=== PATIENT | female | born 1970 | race Caucasian/White ===

== ENCOUNTER 2017-10-03 20:44 | Emergency (ER) | payer OTHER ==
[~2017-10-03] VITALS: Ht 160 cm; Wt 90.7 kg
[~2017-10-03 20:44] MED LIST: ACEBUTCAFT PO; ACET325 PO; ACET500; ALBU90OI INH; ALBU90OI6 INH; ALMOTRIPTAN; AMIT10 PO; AMLO5 PO; ARIP20 PO; AZIT250 PO; BCP S; BCP'S; BCPs; BENZ100A PO; BUSP15; CARI350; CEPH500 PO; CIPR250 PO; CIPR500; CIPR500 PO; CLIN300 PO; CLON1; CLON1 PO; CLON2 PO; CODACE30 PO; CODBUTACEC PO; CRUTCH4 USE; Colace100 MG PO; Cyclobenzaprine5 MG PO; DIPH50; DIPH50 PO; EPIN.3I IM; ESCI10; FOLI1 PO; FURO40 PO; Ferrous Sulfat325 MG PO; GABA300; HYDACE5 PO; HYDCHL12.5; HYDGUAL120 PO; HYDMOR4; HYDPAM25 PO; IBUP800; IBUP800 PO; LATUDA20 MG PO; LEVFLO500 PO; LISI5 PO; LOSA25 PO; MECL12.5 PO; MECL25 PO; META800 PO; METPRE4DP PO; MIRT30 PO; MORP15ER PO; MORP30ER PO; Macrobid 100 M100 MG PO; Micro-K10 MEQ PO; NAPR550 PO; NATAZIA 28 TAB1 EACH PO; NITR100CA PO; ONDA4ODT SL; OXYACE5T PO; OXYACE7.5T PO; OXYC5 PO; Omeprazole20 M1 PO; PARO20 PO; PAXIL40 MG PO; PHENA200 PO; POTCHL10ER; POTCHL10ER PO; POTCHL20ER PO; PREG75; PROACE100 PO; PROM25; PROM25 PO; PROM25S PR; PROM50S PR; Prednisone20 MG PO; Pyridium100 MG PO; QUET100; QUET100 PO; QUET200; QUET300 PO; RXPROM25 PO; RXTRAM50 PO; SULTRIDS PO; SULTRISS; TIZA4; TIZA4 PO; TRAM50; TRAM50 PO; TRAZ100 PO; VENL75; ZIPR20 PO; Zanaflex2 M1 PO; Zanaflex4 MG PO; Zofran Odt4 MG SL; [UNRECOGNIZED DRUG - OTHER]; [UNRECOGNIZED DRUG - REMARK]
[2017-10-03] MEDS ORDERED: ANORO ELLIPTA1 EACH INH (21:55)
[2017-10-03 22:12] LABS: Influenza A Negative (NEGATIVE); Influenza B Negative (NEGATIVE)
[2017-10-03 23:09] LABS: BASOPHILS PERCENT AUTO 1 % (0-2); EOSINOPHILS PERCENT AUTO 1 % (0-6); Hematocrit 34.6 % (33.0-51.0); Hemoglobin 11.1 g/dL (11.5-16.0); IMMATURE GRAN ABSOLUTE AUTO 0.09 K/mm3 (0.00-0.10); IMMATURE GRAN PERCENT AUTO 1 % (0-1); LYMPHOCYTES ABSOLUTE AUTO 3.45 K/mm3 (0.84-5.20); LYMPHOCYTES PERCENT AUTO 21 % (21-46); MONOCYTES ABSOLUTE AUTO 1.18 K/mm3 (0.16-1.47); MONOCYTES PERCENT AUTO 7 % (4-13); Mean Corpuscular HGB 23.5 pg (26.0-34.0); Mean Corpuscular HGB Conc 32.1 g/dL (31.5-36.5); Mean Corpuscular Volume 73 fL (80-100); NEUTROPHILS ABSOLUTE AUTO 11.78 K/mm3 (1.96-9.15); NEUTROPHILS PERCENT AUTO 70 % (41-73); Platelet Count 412 K/mm3 (150-400); RDW Coefficient Variation 17.8 % (11.7-14.2); RDW Standard Deviation 47.2 fL (35.1-46.3); Red Blood Cell Count 4.72 M/mm3 (3.80-5.20)
[2017-10-03 23:28] LABS: Alanine Aminotransfer (ALT/SGP 12 U/L (12-78); Albumin, Blood 3.1 g/dL (3.4-5.0); Albumin/Globulin Ratio 0.7 (0.8-1.8); Alk Phos 88 U/L (50-136); Anion Gap 12 mmol/L (6-16); Aspartate Aminotrans (AST/SGOT 8 U/L (12-37); Bilirubin, Total 0.5 mg/dL (0.1-1.0); Blood Urea Nitrogen 10 mg/dL (8-24); Bun/Creatinine Ratio 11.4 (12.0-20.0); CO2, Blood 22 mmol/L (21-32); Calcium, Blood 8.3 mg/dL (8.5-10.1); Chloride, Blood 103 mmol/L (98-108); Creatinine, Blood 0.88 mg/dL (0.40-1.00); Globulin, Blood 4.2 g/dL (2.2-4.0); Glomerular Filtration Rate >60 (60-); Glucose, Blood 87 mg/dL (70-99); Potassium, Blood 3.4 mmol/L (3.5-5.5); Sodium, Blood 137 mmol/L (136-145); Total Protein, Blood 7.3 g/dL (6.4-8.2)
[2017-10-04 00:26] LABS: Source, Urine Clean Catch
[2017-10-04] MEDS ORDERED: Cleocin HCl150 MG PO (00:26)
[2017-10-04 00:30] LABS: Bilirubin, Urine Neg (Neg); Blood, Urine 3+ (Neg); Glucose Qualitative, Urine Neg (Neg); Ketones, Urine 3+ (Neg); Leukocyte Esterase, Urine 2+ (Neg); Nitrite, Urine Neg (Neg); Protein, Urine Neg (Neg); Urobilinogen, Urine NORM (Normal); pH, Urine 6.5 (5.0-8.0)
[2017-10-04 00:31] LABS: Appearance, Urine Hazy (Clear); Color, Urine Yellow (P-Yellow)
[2017-10-04 00:50] LABS: Amorphous Light (0-Heavy); Bacteria Few /hpf; Mucus Light (0-Heavy); Red Blood Cells, Urine Rare /hpf (0-2); Squamous Epithelial Cells Mod /hpf (Few)
== END 2017-10-04 01:28 | disposition home or self-care (01) ==
LOC: ER 20:44
PROVIDERS: Emergency Medicine
DX: J02.0 Streptococcal pharyngitis (principal); G43.909 Migraine, unspecified, not intractable, without status migrainosus; Z88.0 Allergy status to penicillin; F31.9 Bipolar disorder, unspecified; Z91.011 Allergy to milk products; Z91.018 Allergy to other foods; Z91.030 Bee allergy status; Z88.2 Allergy status to sulfonamides; Z88.1 Allergy status to other antibiotic agents; Z88.8 Allergy status to other drugs, medicaments and biological substances; Z79.899 Other long term (current) drug therapy; Z98.890 Other specified postprocedural states; Z90.49 Acquired absence of other specified parts of digestive tract; Z98.51 Tubal ligation status
CPT/HCPCS: 36415; 80053; 81001; 85025; 87086; 87430; 87804; 96361; 96374; 96375; 99283; J1885; J2405; J7030

== ENCOUNTER 2018-04-24 22:16 | Emergency (ER) | payer OTHER ==
[~2018-04-24] VITALS: Ht 160 cm; Wt 81.7 kg
[~2018-04-24 22:16] MED LIST changes: +ANORO ELLIPTA1 EACH INH; +Cleocin HCl150 MG PO
[2018-04-24] MEDS ORDERED: BUSP5 PO (23:36)
[2018-04-24] MEDS ORDERED: CITA20 PO (23:36)
[2018-04-24] MEDS ORDERED: VITAMIN D5000 UNIT PO (23:37)
[2018-04-25 00:25] LABS: BASOPHILS ABSOLUTE AUTO 0.11 K/mm3 (0.00-0.23); BASOPHILS PERCENT AUTO 1 % (0-2); EOSINOPHILS ABSOLUTE AUTO 0.16 K/mm3 (0.00-0.68); EOSINOPHILS PERCENT AUTO 1 % (0-6); Hematocrit 36.7 % (33.0-51.0); Hemoglobin 11.5 g/dL (11.5-16.0); IMMATURE GRAN ABSOLUTE AUTO 0.02 K/mm3 (0.00-0.10); IMMATURE GRAN PERCENT AUTO 0 % (0-1); LYMPHOCYTES ABSOLUTE AUTO 4.53 K/mm3 (0.84-5.20); LYMPHOCYTES PERCENT AUTO 38 % (21-46); MONOCYTES ABSOLUTE AUTO 0.84 K/mm3 (0.16-1.47); MONOCYTES PERCENT AUTO 7 % (4-13); Mean Corpuscular HGB 25.1 pg (26.0-34.0); Mean Corpuscular HGB Conc 31.3 g/dL (31.5-36.5); Mean Corpuscular Volume 80 fL (80-100); Mean Platelet Volume 9.2 fL (9.1-12.4); NEUTROPHILS ABSOLUTE AUTO 6.38 K/mm3 (1.96-9.15); NEUTROPHILS PERCENT AUTO 53 % (41-73); Platelet Count 473 K/mm3 (150-400); RDW Coefficient Variation 17.3 % (11.7-14.2); RDW Standard Deviation 50.1 fL (35.1-46.3); Red Blood Cell Count 4.59 M/mm3 (3.80-5.20); White Blood Cell Count 12.04 K/mm3 (4.00-11.30)
== END 2018-04-25 01:09 | disposition home or self-care (01) ==
LOC: ER 22:16
PROVIDERS: Emergency Medicine
DX: N92.1 Excessive and frequent menstruation with irregular cycle (principal); G43.909 Migraine, unspecified, not intractable, without status migrainosus; F31.9 Bipolar disorder, unspecified; Z87.891 Personal history of nicotine dependence; Z88.0 Allergy status to penicillin; Z88.2 Allergy status to sulfonamides; Z88.8 Allergy status to other drugs, medicaments and biological substances; Z88.1 Allergy status to other antibiotic agents; Z91.030 Bee allergy status; Z91.011 Allergy to milk products; Z91.018 Allergy to other foods; Z79.899 Other long term (current) drug therapy
CPT/HCPCS: 36415; 84703; 85025; 99283

== ENCOUNTER 2018-07-06 15:57 | Emergency (ER) | payer OTHER ==
[~2018-07-06] VITALS: Ht 165.1 cm; Wt 90.7 kg
[~2018-07-06 15:57] MED LIST changes: +BUSP5 PO; +CITA20 PO; +VITAMIN D5000 UNIT PO
[2018-07-06 16:37] LABS: BASOPHILS ABSOLUTE AUTO 0.09 K/mm3 (0.00-0.23); BASOPHILS PERCENT AUTO 1 % (0-2); EOSINOPHILS ABSOLUTE AUTO 0.18 K/mm3 (0.00-0.68); EOSINOPHILS PERCENT AUTO 1 % (0-6); Hematocrit 34.2 % (33.0-51.0); Hemoglobin 10.4 g/dL (11.5-16.0); IMMATURE GRAN ABSOLUTE AUTO 0.13 K/mm3 (0.00-0.10); IMMATURE GRAN PERCENT AUTO 1 % (0-1); LYMPHOCYTES ABSOLUTE AUTO 4.39 K/mm3 (0.84-5.20); LYMPHOCYTES PERCENT AUTO 31 % (21-46); MONOCYTES ABSOLUTE AUTO 0.83 K/mm3 (0.16-1.47); MONOCYTES PERCENT AUTO 6 % (4-13); Mean Corpuscular HGB 23.5 pg (26.0-34.0); Mean Corpuscular HGB Conc 30.4 g/dL (31.5-36.5); Mean Corpuscular Volume 77 fL (80-100); Mean Platelet Volume 8.5 fL (9.1-12.4); NEUTROPHILS PERCENT AUTO 61 % (41-73); Platelet Count 628 K/mm3 (150-400); RDW Standard Deviation 44.4 fL (35.1-46.3); Red Blood Cell Count 4.42 M/mm3 (3.80-5.20); White Blood Cell Count 14.22 K/mm3 (4.00-11.30)
[2018-07-06 16:50] LABS: International Normalized Ratio 0.97
[2018-07-06 16:54] LABS: Albumin, Blood 3.4 g/dL (3.4-5.0); Albumin/Globulin Ratio 0.8 (0.8-1.8); Bilirubin, Total 0.2 mg/dL (0.1-1.0); Bun/Creatinine Ratio 14.3 (12.0-20.0); Calcium, Blood 8.7 mg/dL (8.5-10.1); Creatinine, Blood 1.05 mg/dL (0.40-1.00); Globulin, Blood 4.2 g/dL (2.2-4.0); Potassium, Blood 4.2 mmol/L (3.5-5.5); Total Protein, Blood 7.6 g/dL (6.4-8.2)
== END 2018-07-06 20:58 | disposition short-term general hospital (02) ==
LOC: ER 15:57
PROVIDERS: Emergency Medicine
DX: S32.422A Displaced fracture of posterior wall of left acetabulum, initial encounter for closed fracture (principal); S22.43XA Multiple fractures of ribs, bilateral, initial encounter for closed fracture; S32.474A Nondisplaced fracture of medial wall of right acetabulum, initial encounter for closed fracture; S40.812A Abrasion of left upper arm, initial encounter; S40.811A Abrasion of right upper arm, initial encounter; N18.9 Chronic kidney disease, unspecified; F31.9 Bipolar disorder, unspecified; Z91.030 Bee allergy status; Z88.0 Allergy status to penicillin; Z91.011 Allergy to milk products; Z91.018 Allergy to other foods; Z88.6 Allergy status to analgesic agent; Z88.2 Allergy status to sulfonamides; Z88.1 Allergy status to other antibiotic agents; Z88.8 Allergy status to other drugs, medicaments and biological substances; Z79.899 Other long term (current) drug therapy; Z87.891 Personal history of nicotine dependence; V47.6XXA Car passenger injured in collision with fixed or stationary object in traffic accident, initial encounter
CPT/HCPCS: 27222; 36415; 51702; 70450; 71260; 72125; 73501; 73502; 73560-RT; 74177; 80053; 83690; 85025; 85610; 85730; 86850; 86900; 86901; 96374; 96375; 96376; 99152; 99285-25; J1170; J2405; J3010; J7030; Q9967

== ENCOUNTER 2018-07-19 07:32 | Emergency (ER) | payer OTHER ==
[~2018-07-19] VITALS: Ht 160 cm; Wt 81.7 kg
[2018-09-10] MEDS ORDERED: POTCHL10ER PO (12:43)
[2018-09-10] MEDS ORDERED: FURO40 PO (12:43)
[2018-09-10] MEDS ORDERED: EPIPEN 2-P0.3 MG/0.3 IM (12:43)
[2018-09-10] MEDS ORDERED: ALBU90OI INH (12:44)
[2018-09-10] MEDS ORDERED: Omeprazole20 M1 PO (12:44)
[2018-09-10] MEDS ORDERED: LOSA25 PO (12:44)
[2018-09-10] MEDS ORDERED: Celexa40 MG PO (12:45)
[2018-09-10] MEDS ORDERED: ANORO ELLIPTA1 EACH INH (12:45)
[2018-09-10] MEDS ORDERED: CYCL10 PO (12:45)
== END 2018-07-19 10:30 | disposition home or self-care (01) ==
LOC: ER 07:32
DX: S93.401A Sprain of unspecified ligament of right ankle, initial encounter (principal); S32.401D Unspecified fracture of right acetabulum, subsequent encounter for fracture with routine healing; X58.XXXA Exposure to other specified factors, initial encounter; Z91.030 Bee allergy status; Z88.0 Allergy status to penicillin; Z91.011 Allergy to milk products; Z88.8 Allergy status to other drugs, medicaments and biological substances; Z88.2 Allergy status to sulfonamides; Z88.1 Allergy status to other antibiotic agents; Z79.899 Other long term (current) drug therapy; G43.909 Migraine, unspecified, not intractable, without status migrainosus; Z31.9 Encounter for procreative management, unspecified; I12.9 Hypertensive chronic kidney disease with stage 1 through stage 4 chronic kidney disease, or unspecified chronic kidney disease; N18.9 Chronic kidney disease, unspecified; Z87.891 Personal history of nicotine dependence
CPT/HCPCS: 73502; 73610; 96374; 96375; 99284-25; J2550; J3010

== ENCOUNTER → 2018-07-25 | Outpatient (CLI) | payer OTHER ==
[~2018-07-25] MED LIST changes: +CYCL10 PO; +Celexa40 MG PO; +EPIPEN 2-P0.3 MG/0.3 IM
== END | disposition home or self-care (01) ==
LOC: LAB SHORT 17:11 → LAB 17:11
DX: T24.23 Burn of second degree of lower leg (principal)
CPT/HCPCS: 87070; 87205

== ENCOUNTER 2018-09-11 09:59 | Day surgery (SDC) | payer OTHER ==
[~2018-09-11] VITALS: Ht 157.5 cm; Wt 82.9 kg
--- NOTE | 2018-09-11 11:35 | NUR ---
09/11/18 1135 Hernandez Louis SEVERAL SORE ON DORSAL ASPECT OF RIGHT HAND AND FOREARM. ALL HAVE WELL HEALED SCABS ON THEM.
--- NOTE | 2018-09-11 12:55 | NUR ---
09/11/18 Carmen East VERBALIZED UNDERSTNADING OF INSTRUCTION, ARUN ARM ELEVATED IN SLING, TEACHING ON PAIN MEDS AND FOLLOW UP. WALKED TO CAR WITH STANDBY ASSIST,
== END 2018-09-11 12:40 | disposition home or self-care (01) ==
LOC: ORSCSDS 09:59
PROVIDERS: Orthopaedic Surgery
PROC: 01N50ZZ Release Median Nerve, Open Approach (ICD-10-PCS; principal; 2018-09-11 11:15)
DX: G56.01 Carpal tunnel syndrome, right upper limb (principal); I10 Essential (primary) hypertension; J45.909 Unspecified asthma, uncomplicated; F41.8 Other specified anxiety disorders; F42.9 Obsessive-compulsive disorder, unspecified; E66.9 Obesity, unspecified; Z68.33 Body mass index [BMI] 33.0-33.9, adult; Z79.899 Other long term (current) drug therapy
CPT/HCPCS: J0690; J2250; J2405; J3010; J7120

== ENCOUNTER → 2018-12-16 | Outpatient (CLI) | payer OTHER | LOC: LAB SHORT 08:46 → PLD 08:46 | DX: N94.6 Dysmenorrhea, unspecified (principal) | CPT/HCPCS: 88305 ==

== ENCOUNTER 2019-04-28 15:22 | Emergency (ER) | payer OTHER ==
[~2019-04-28] VITALS: Ht 157.5 cm; Wt 72.6 kg
[2019-04-28] MEDS ORDERED: Zithromax250 MG PO (15:55)
== END 2019-04-28 15:58 | disposition home or self-care (01) ==
LOC: ER 15:22
DX: J18.9 Pneumonia, unspecified organism (principal); Z88.0 Allergy status to penicillin; Z91.030 Bee allergy status; Z91.011 Allergy to milk products; Z91.018 Allergy to other foods; Z88.2 Allergy status to sulfonamides; Z88.1 Allergy status to other antibiotic agents; Z79.899 Other long term (current) drug therapy; G43.909 Migraine, unspecified, not intractable, without status migrainosus; I12.9 Hypertensive chronic kidney disease with stage 1 through stage 4 chronic kidney disease, or unspecified chronic kidney disease; N18.9 Chronic kidney disease, unspecified; Z87.891 Personal history of nicotine dependence
CPT/HCPCS: 71046; 99283-25

== ENCOUNTER 2019-05-08 15:56 | Emergency (ER) | payer OTHER ==
[~2019-05-08] VITALS: Ht 157.5 cm; Wt 71.7 kg
[~2019-05-08 15:56] MED LIST changes: +Zithromax250 MG PO
[2019-05-08 16:23] LABS: BASOPHILS ABSOLUTE AUTO 0.14 K/mm3 (0.00-0.23); BASOPHILS PERCENT AUTO 1 % (0-2); EOSINOPHILS ABSOLUTE AUTO 0.07 K/mm3 (0.00-0.68); EOSINOPHILS PERCENT AUTO 1 % (0-6); IMMATURE GRAN ABSOLUTE AUTO 0.03 K/mm3 (0.00-0.10); IMMATURE GRAN PERCENT AUTO 0 % (0-1); LYMPHOCYTES PERCENT AUTO 33 % (21-46); MONOCYTES ABSOLUTE AUTO 0.89 K/mm3 (0.16-1.47); MONOCYTES PERCENT AUTO 8 % (4-13); Mean Corpuscular HGB 25.4 pg (26.0-34.0); Mean Corpuscular HGB Conc 30.2 g/dL (31.5-36.5); Mean Corpuscular Volume 84 fL (80-100); Mean Platelet Volume 9.3 fL (9.1-12.4); NEUTROPHILS ABSOLUTE AUTO 6.14 K/mm3 (1.96-9.15); NEUTROPHILS PERCENT AUTO 57 % (41-73); Platelet Count 580 K/mm3 (150-400); RDW Coefficient Variation 14.9 % (11.7-14.2); RDW Standard Deviation 46.1 fL (35.1-46.3); Red Blood Cell Count 5.11 M/mm3 (3.80-5.20); White Blood Cell Count 10.77 K/mm3 (4.00-11.30)
[2019-05-08 16:56] LABS: International Normalized Ratio 1.05; Prothrombin Time Results 11.1 Sec (9.7-11.5)
[2019-05-08 17:55] LABS: Alanine Aminotransfer (ALT/SGP 29 U/L (12-78); Albumin, Blood 3.2 g/dL (3.4-5.0); Albumin/Globulin Ratio 0.8 (0.8-1.8); Alk Phos 103 U/L (50-136); Anion Gap 10 mmol/L (6-16); Aspartate Aminotrans (AST/SGOT 25 U/L (12-37); Bilirubin, Total 0.6 mg/dL (0.1-1.0); Blood Urea Nitrogen 15 mg/dL (8-24); Bun/Creatinine Ratio 15.6 (12.0-20.0); CO2, Blood 18 mmol/L (21-32); Calcium, Blood 8.5 mg/dL (8.5-10.1); Chloride, Blood 104 mmol/L (98-108); Creatinine, Blood 0.96 mg/dL (0.40-1.00); Globulin, Blood 4.1 g/dL (2.2-4.0); Glomerular Filtration Rate >60 (60-); Glucose, Blood 110 mg/dL (70-99); Potassium, Blood 4.4 mmol/L (3.5-5.5); Sodium, Blood 132 mmol/L (136-145); Total Protein, Blood 7.3 g/dL (6.4-8.2)
[2019-05-08 18:29] LABS: Source, Urine Catheter
[2019-05-08 18:34] LABS: Appearance, Urine Clear (Clear); Bilirubin, Urine Neg (Neg); Blood, Urine 1+ (Neg); Color, Urine Yellow (P-Yellow); Glucose Qualitative, Urine Neg (Neg); Ketones, Urine 1+ (Neg); Leukocyte Esterase, Urine Neg (Neg); Nitrite, Urine Neg (Neg); Protein, Urine 2+ (Neg); Specific Gravity, Urine 1.025 (1.003-1.022); Urobilinogen, Urine NORM (Normal)
[2019-05-08 18:41] LABS: Red Blood Cells, Urine 0-2 /hpf (0-2); White Blood Cells, Urine 0-2 /hpf (0-5)
[2019-05-08 18:42] LABS: Bacteria Few /hpf; Hyaline Casts 0-2 /lpf (0-2); Squamous Epithelial Cells Few /hpf (Few)
[2019-05-08 19:15] LABS: U Amphetamine Screen DETECTED; U Barbituate Screen Not Detected; U Benzodiazapine Screen Not Detected; U Buprenorphine Screen Not Detected; U Cannabinoids Screen DETECTED; U Cocaine Screen Not Detected; U Methadone Screen Not Detected; U Methamphetamine Screen DETECTED; U Opiates Screen Not Detected; U Oxycodone Screen Not Detected; U Phencyclidine Screen Not Detected; U Propoxyphene Screen Not Detected
[2019-05-08] MEDS ORDERED: Mucinex600 MG PO (19:38)
== END 2019-05-08 20:16 | disposition home or self-care (01) ==
LOC: ER 15:56
PROVIDERS: Emergency Medicine; Physician Assistant
DX: I47.1 Supraventricular tachycardia (principal); F41.9 Anxiety disorder, unspecified; E86.0 Dehydration; F15.10 Other stimulant abuse, uncomplicated; J06.9 Acute upper respiratory infection, unspecified; G89.4 Chronic pain syndrome; I12.9 Hypertensive chronic kidney disease with stage 1 through stage 4 chronic kidney disease, or unspecified chronic kidney disease; N18.9 Chronic kidney disease, unspecified; F31.9 Bipolar disorder, unspecified; Z86.73 Personal history of transient ischemic attack (TIA), and cerebral infarction without residual deficits; Z87.891 Personal history of nicotine dependence; Z91.030 Bee allergy status; Z88.0 Allergy status to penicillin; Z91.011 Allergy to milk products; Z91.018 Allergy to other foods; Z88.8 Allergy status to other drugs, medicaments and biological substances; Z88.2 Allergy status to sulfonamides; Z88.1 Allergy status to other antibiotic agents; Z79.899 Other long term (current) drug therapy
CPT/HCPCS: 36415; 71046; 80053; 81001; 83735; 84484; 85025; 85610; 85730; 87086; 93005; 93010; 96361; 96365; 96374; 96375; 96376; 99285-25; J0153; J2060; J2405; J3475; J7030; P9612

== ENCOUNTER 2019-05-10 00:15 | Inpatient (IN) | payer OTHER ==
[~2019-05-10] VITALS: Ht 154.9 cm; Wt 73.0 kg
[~2019-05-10 00:15] MED LIST changes: +Mucinex600 MG PO
[2019-05-10 01:10] LABS: Alanine Aminotransfer (ALT/SGP 40 U/L (12-78); Albumin/Globulin Ratio 0.8 (0.8-1.8); Alk Phos 106 U/L (50-136); Anion Gap 10 mmol/L (6-16); Aspartate Aminotrans (AST/SGOT 49 U/L (12-37); Bilirubin, Total 0.7 mg/dL (0.1-1.0); Blood Urea Nitrogen 12 mg/dL (8-24); Bun/Creatinine Ratio 15.1 (12.0-20.0); CO2, Blood 18 mmol/L (21-32); Calcium, Blood 7.7 mg/dL (8.5-10.1); Chloride, Blood 108 mmol/L (98-108); Creatinine, Blood 0.79 mg/dL (0.40-1.00); Globulin, Blood 3.6 g/dL (2.2-4.0); Glomerular Filtration Rate >60 (60-); Glucose, Blood 108 mg/dL (70-99); Potassium, Blood 4.1 mmol/L (3.5-5.5); Sodium, Blood 136 mmol/L (136-145); Total Protein, Blood 6.6 g/dL (6.4-8.2); Troponin I <0.015 ng/mL (0.000-0.040)
[2019-05-10 01:25] LABS: BASOPHILS ABSOLUTE AUTO 0.14 K/mm3 (0.00-0.23); BASOPHILS PERCENT AUTO 1 % (0-2); EOSINOPHILS ABSOLUTE AUTO 0.09 K/mm3 (0.00-0.68); EOSINOPHILS PERCENT AUTO 1 % (0-6); Hematocrit 41.9 % (33.0-51.0); IMMATURE GRAN ABSOLUTE AUTO 0.06 K/mm3 (0.00-0.10); IMMATURE GRAN PERCENT AUTO 0 % (0-1); LYMPHOCYTES PERCENT AUTO 26 % (21-46); MONOCYTES ABSOLUTE AUTO 1.31 K/mm3 (0.16-1.47); MONOCYTES PERCENT AUTO 10 % (4-13); Mean Corpuscular HGB 25.4 pg (26.0-34.0); Mean Corpuscular Volume 82 fL (80-100); NEUTROPHILS ABSOLUTE AUTO 8.57 K/mm3 (1.96-9.15); NEUTROPHILS PERCENT AUTO 63 % (41-73); RDW Standard Deviation 45.1 fL (35.1-46.3); Red Blood Cell Count 5.11 M/mm3 (3.80-5.20); White Blood Cell Count 13.67 K/mm3 (4.00-11.30)
[2019-05-10 01:28] LABS: Mean Platelet Volume 9.5 fL (9.1-12.4); Platelet Count 394 K/mm3 (150-400)
[2019-05-10 03:06] LABS: PCO2 Arterial 45.7 mmHg (35-45); PO2 Arterial 70.9 mmHg (80-100)
--- NOTE | 2019-05-10 05:30 | NUR ---
SVT EPISODE: PT TO ROOM ICU 6 AT 0450. PT WENT INTO SVT WHILE ACCESSING OTHER IV SITE. ACLS INITIATED. HOSPITALIST NOTIFIED. ADENOSINE 6mg RAPID IV PUSH GIVEN-PT CONVERTED TO SIT HR 130'S. HOSPITALIST NOTIFIED AMIODARONE BOLUS AND gtt ORDERED STAT. PHARMACIST NOTIFIED.
--- NOTE | 2019-05-10 06:20 | NUR ---
CENTRAL LINE IN R IJ. XRAY DONE. DR. WEIR AT BEDSIDE READ XRAY. LINE GOOD TO USE.
--- NOTE | 2019-05-10 06:43 | NUR ---
PT INTO SVT HR 219 WITH PULSE AT APPRX 0633: CODE CALLED. ADENOSINE GIVEN 6mg THEN 12mg, PT CONVERTED TO SINUS TACH 101. DR. PIERCE AND RT TO BEDSIDE. PT HYPOTENSIVE AT THAT TIME BP 60'S/40'S. LEVOPHED ORDERED. DR. VALENCIA TO BEDSIDE CONFIRMED TO ORDER AMIODARONE GTT. LABS CBC, CHEM , AND MG ORDERED AND DRAWN.
[2019-05-10 06:51] LABS: BASOPHILS ABSOLUTE AUTO 0.08 K/mm3 (0.00-0.23); BASOPHILS PERCENT AUTO 1 % (0-2); EOSINOPHILS PERCENT AUTO 0 % (0-6); Hematocrit 39.7 % (33.0-51.0); Hemoglobin 12.4 g/dL (11.5-16.0); IMMATURE GRAN ABSOLUTE AUTO 0.09 K/mm3 (0.00-0.10); IMMATURE GRAN PERCENT AUTO 1 % (0-1); LYMPHOCYTES ABSOLUTE AUTO 0.93 K/mm3 (0.84-5.20); LYMPHOCYTES PERCENT AUTO 6 % (21-46); MONOCYTES ABSOLUTE AUTO 1.02 K/mm3 (0.16-1.47); MONOCYTES PERCENT AUTO 7 % (4-13); Mean Corpuscular HGB 25.3 pg (26.0-34.0); Mean Corpuscular HGB Conc 31.2 g/dL (31.5-36.5); Mean Corpuscular Volume 81 fL (80-100); Mean Platelet Volume 9.2 fL (9.1-12.4); NEUTROPHILS PERCENT AUTO 86 % (41-73); Platelet Count 448 K/mm3 (150-400); RDW Coefficient Variation 15.3 % (11.7-14.2); RDW Standard Deviation 44.5 fL (35.1-46.3); Red Blood Cell Count 4.91 M/mm3 (3.80-5.20); White Blood Cell Count 15.52 K/mm3 (4.00-11.30)
[2019-05-10 07:07] LABS: Anion Gap 9 mmol/L (6-16); Blood Urea Nitrogen 14 mg/dL (8-24); Bun/Creatinine Ratio 14.4 (12.0-20.0); CO2, Blood 25 mmol/L (21-32); Calcium, Blood 7.4 mg/dL (8.5-10.1); Chloride, Blood 103 mmol/L (98-108); Creatinine, Blood 0.97 mg/dL (0.40-1.00); Glomerular Filtration Rate >60 (60-); Glucose, Blood 150 mg/dL (70-99); Magnesium, Blood 1.7 mg/dL (1.6-2.4); Potassium, Blood 3.2 mmol/L (3.5-5.5); Sodium, Blood 137 mmol/L (136-145)
[2019-05-10 08:00] LABS: Source, Urine Catheter
[2019-05-10 08:05] LABS: Bilirubin, Urine Neg (Neg); Blood, Urine 1+ (Neg); Glucose Qualitative, Urine Neg (Neg); Ketones, Urine Neg (Neg); Leukocyte Esterase, Urine Neg (Neg); Nitrite, Urine Neg (Neg); Protein, Urine 1+ (Neg); Urobilinogen, Urine NORM (Normal)
[2019-05-10 08:13] LABS: Appearance, Urine Clear (Clear); Color, Urine Yellow (P-Yellow)
[2019-05-10 08:16] LABS: Bacteria Rare /hpf; Red Blood Cells, Urine 0-2 /hpf (0-2); Squamous Epithelial Cells Rare /hpf (Few); White Blood Cells, Urine 0-2 /hpf (0-5)
[2019-05-10 08:17] LABS: U Amphetamine Screen Not Detected; U Barbituate Screen Not Detected; U Benzodiazapine Screen DETECTED; U Buprenorphine Screen Not Detected; U Cannabinoids Screen Not Detected; U Cocaine Screen Not Detected; U Methadone Screen Not Detected; U Methamphetamine Screen DETECTED; U Opiates Screen Not Detected; U Oxycodone Screen Not Detected; U Phencyclidine Screen Not Detected; U Propoxyphene Screen Not Detected
--- NOTE | 2019-05-10 08:30 | NUR ---
DR MCCURDY (ARTURO): PROVIDER AT BEDSIDE. HE HAS SPOKEN W/ FAMILY & PROVIDED AN UPDATE. UPDATED PROVIDER ON PT's CONDITION SINCE ARRIVAL TO UNIT. NEW ORDERS PLACED. WILL CONTINUE TO MONITOR & UPDATE NEEDED.
--- NOTE | 2019-05-10 08:40 | NUR ---
ASSUMED CARE: REPORT RECEIVED FROM SAMANTHA Beth RN. ASSUMED CARE OF THIS PT AT APPROX 0700. ON ASSESSMENT, THE PT REMAINS SEDATED & INTUBATED. SHE APPEARS COMFORTABLE AT THIS TIME. PROPOFOL TITRATION FOR SEDATION. LS ARE COARSE T/O, VENT SETTINGS: AC 18, TV 400, PEEP 5 & FIO2 50%. O2 SATS > 92% ON AVG. MONITOR SHOWS SR W/ HR 90s. NO SVT NOTED SINCE ASSUMING CARE. DR BIGGS CONSULTED THIS AM FOR RECURRENT SYMPTOMATIC SVT. BP STABLE, LEVOPHED TITRATION DOCUMENTED IN FLOWSHEET. OGT TO LIS, TEMP GALARZA PATENT/ DRAINING. DIURESIS PER EMAR. SKIN OVERALL CDI. MULTIPLE SPECIMENS HAVE BEEN COLLECTED PER ORDERS & SENT TO LAB. WILL CONTINUE TO MONITOR & UPDATE NEEDED.
--- NOTE | 2019-05-10 09:40 | NUR ---
DR BIGGS: PROVIDER AT BEDSIDE TO SEE PT. HE WOULD LIKE AMIO DRIP TO CONTINUE AT THIS TIME, WILL ADDRESS POSSIBILITY OF PO AMIO TOMORROW. ECHO HAS BEEN COMPLETED, PROVIDER STS PT HAS AN EF OF 25%. TITRATE LEVOPHED TO MAINTAIN MAP > 65. WILL CONTINUE TO MONITOR & UPDATE NEEDED.
[2019-05-10 11:02] LABS: Influenza A Negative (NEGATIVE); Influenza B Negative (NEGATIVE)
--- NOTE | 2019-05-10 11:33 | NUR ---
DR JOE: PROVIDER HAS BEEN AT BEDSIDE THIS AM. NO CHANGES, CONTINUE MANAGAMENT PER LEAD TECHNICIAN & CARDIO SERVICES.
--- NOTE | 2019-05-10 14:55 | NUR ---
ECHOCARDIOGRAM COMPLETE
[2019-05-10 15:18] LABS: Alanine Aminotransfer (ALT/SGP 46 U/L (12-78); Albumin, Blood 2.9 g/dL (3.4-5.0); Albumin/Globulin Ratio 0.7 (0.8-1.8); Alk Phos 121 U/L (50-136); Anion Gap 9 mmol/L (6-16); Aspartate Aminotrans (AST/SGOT 50 U/L (12-37); Bilirubin, Total 0.6 mg/dL (0.1-1.0); Blood Urea Nitrogen 13 mg/dL (8-24); Bun/Creatinine Ratio 12.9 (12.0-20.0); CO2, Blood 23 mmol/L (21-32); Calcium, Blood 7.5 mg/dL (8.5-10.1); Chloride, Blood 105 mmol/L (98-108); Creatinine, Blood 1.01 mg/dL (0.40-1.00); Glomerular Filtration Rate >60 (60-); Glucose, Blood 111 mg/dL (70-99); Potassium, Blood 4.9 mmol/L (3.5-5.5); Sodium, Blood 137 mmol/L (136-145); Total Protein, Blood 6.9 g/dL (6.4-8.2)
[2019-05-10 15:20] LABS: Hematocrit 41.8 % (33.0-51.0); Hemoglobin 12.9 g/dL (11.5-16.0); Mean Corpuscular HGB 25.2 pg (26.0-34.0); Mean Corpuscular HGB Conc 30.9 g/dL (31.5-36.5); Mean Corpuscular Volume 82 fL (80-100); Mean Platelet Volume 9.3 fL (9.1-12.4); Platelet Count 396 K/mm3 (150-400); RDW Coefficient Variation 15.2 % (11.7-14.2); RDW Standard Deviation 45.1 fL (35.1-46.3); Red Blood Cell Count 5.11 M/mm3 (3.80-5.20); White Blood Cell Count 15.78 K/mm3 (4.00-11.30)
[2019-05-10 15:43] LABS: Troponin I 0.078 ng/mL (0.000-0.040)
[2019-05-10 16:38] LABS: Adenovirus Not Detected (NOT DETECT); Bordetella pertussis Not Detected (NOT DETECT); Chlamydophila pneumoniae Not Detected (NOT DETECT); Coronavirus 229E Not Detected (NOT DETECT); Coronavirus HKU1 Not Detected (NOT DETECT); Coronavirus NL63 Not Detected (NOT DETECT); Coronavirus OC43 Not Detected (NOT DETECT); Human Metapneumovirus Not Detected (NOT DETECT); Human Rhinovirus/Enterovirus Detected (NOT DETECT); Influenza A Not Detected (NOT DETECT); Influenza A/2009-H1 Not Detected (NOT DETECT); Influenza A/H1 Not Detected (NOT DETECT); Influenza A/H3 Not Detected (NOT DETECT); Influenza B Not Detected (NOT DETECT); Mycoplasma pneumoniae Not Detected (NOT DETECT); Parainfluenza Virus 1 Not Detected (NOT DETECT); Parainfluenza Virus 2 Not Detected (NOT DETECT); Parainfluenza Virus 3 Not Detected (NOT DETECT); Parainfluenza Virus 4 Not Detected (NOT DETECT); Respiratory Syncytial Virus Not Detected (NOT DETECT)
--- NOTE | 2019-05-10 18:52 | NUR ---
SHIFT SUMMARY: NO ACUTE CHANGES SINCE PRIOR UPDATES. PT REMAINS SEDATED/ INTUBATED. LS ARE LESS COARSE THIS AFTERNOON, PT TOLERATING VENT WELL W/ O2 SATS > 92%. VENT SETTINGS: AC 18, TV 400, PEEP 5 & FIO2 30%. MONITOR SHOWS SR W/ HR 90s. LEVOPHED TITRATED IN FLOWSHEET. OGT CONTINUES TO LIS. TEMP GALARZA PATENT/ DRAINING. PT DIURESED WELL W/ I&O CHARTED. PT's FAMILY IS IN BETTER SPIRITS THIS AFTERNOON & FEEL THAT THEY HAVE BEEN ADEQUATELY UPDATED ON PT's CONDITION. DR MCCURDY HAS MADE THIS RN AWARE THAT THE PT's FAMILY ONLY KNOWS OF PT's METH ABUSE HX, DOES NOT KNOW THAT SHE WAS METH + ON THIS ADMISSION. WILL CONTINUE TO MONITOR & REPORT OFF TO ONCOMING RN.
[2019-05-10 22:59] LABS: Troponin I 0.068 ng/mL (0.000-0.040)
[2019-05-11 03:16] LABS: BASOPHILS ABSOLUTE AUTO 0.07 K/mm3 (0.00-0.23); BASOPHILS PERCENT AUTO 1 % (0-2); EOSINOPHILS ABSOLUTE AUTO 0.04 K/mm3 (0.00-0.68); EOSINOPHILS PERCENT AUTO 0 % (0-6); Hematocrit 36.8 % (33.0-51.0); Hemoglobin 11.6 g/dL (11.5-16.0); IMMATURE GRAN ABSOLUTE AUTO 0.05 K/mm3 (0.00-0.10); IMMATURE GRAN PERCENT AUTO 0 % (0-1); LYMPHOCYTES ABSOLUTE AUTO 1.58 K/mm3 (0.84-5.20); LYMPHOCYTES PERCENT AUTO 14 % (21-46); MONOCYTES ABSOLUTE AUTO 0.94 K/mm3 (0.16-1.47); MONOCYTES PERCENT AUTO 8 % (4-13); Mean Corpuscular HGB 25.1 pg (26.0-34.0); Mean Corpuscular HGB Conc 31.5 g/dL (31.5-36.5); Mean Corpuscular Volume 80 fL (80-100); Mean Platelet Volume 9.4 fL (9.1-12.4); NEUTROPHILS ABSOLUTE AUTO 8.48 K/mm3 (1.96-9.15); NEUTROPHILS PERCENT AUTO 76 % (41-73); Platelet Count 341 K/mm3 (150-400); RDW Coefficient Variation 15.2 % (11.7-14.2); RDW Standard Deviation 43.6 fL (35.1-46.3); Red Blood Cell Count 4.62 M/mm3 (3.80-5.20); White Blood Cell Count 11.16 K/mm3 (4.00-11.30)
[2019-05-11 03:36] LABS: Alanine Aminotransfer (ALT/SGP 39 U/L (12-78); Albumin, Blood 2.5 g/dL (3.4-5.0); Albumin/Globulin Ratio 0.7 (0.8-1.8); Alk Phos 101 U/L (50-136); Anion Gap 6 mmol/L (6-16); Aspartate Aminotrans (AST/SGOT 39 U/L (12-37); Bilirubin, Total 0.6 mg/dL (0.1-1.0); Blood Urea Nitrogen 13 mg/dL (8-24); CO2, Blood 30 mmol/L (21-32); Calcium, Blood 7.3 mg/dL (8.5-10.1); Chloride, Blood 104 mmol/L (98-108); Globulin, Blood 3.7 g/dL (2.2-4.0); Glomerular Filtration Rate >60 (60-); Glucose, Blood 96 mg/dL (70-99); Magnesium, Blood 1.9 mg/dL (1.6-2.4); Potassium, Blood 3.3 mmol/L (3.5-5.5); Sodium, Blood 140 mmol/L (136-145); Total Protein, Blood 6.2 g/dL (6.4-8.2)
--- NOTE | 2019-05-11 08:00 | NUR ---
Recieved report from Lyle HUMPHREY. Patient supine in bed with HOB at 30 degrees. She is iontubated and ligtly sedated with Propofol. She is intubated with 7.5 ET and is 23 at lips, vent settings AC 18, TV 400, FiO2 30% and PEEP 5.0 with sats mid to upper 90%'s. Patient responds to painmful stimuli and sits up in bed a little moving LE's and laying back down. She has RIJ quad lumen central line and is infusing Amiodarone 0.5mg/hr, Propofol 50 mcg/kg/min, and NS TKO and intermitent Abx. Patient has 16Fr Temp jaramillo draining to greavity clear to cloudy yellow urine and temp of 99.7. Applied ice to arm pits and fan blowing on patient. Oral care , cath care and repositioned.
--- NOTE | 2019-05-11 10:07 | NUR ---
PATIENT REPOSITIONED. NO CHANGES IN VENT OR GTT SETTINGS. PATIENT CONTINUES TO SITUP AND MOVE LE'S. REPOSITIONED
--- NOTE | 2019-05-11 12:30 | NUR ---
Family has been in and out and very concerned about patient and has alot of hx in hospital about their personal views of hospital. They are very anxious about having her here. She continue to try to lean forward and moves her LE's around the bed. She does not open eyes or follow any directions.
--- NOTE | 2019-05-11 15:50 | NUR ---
Increased Propofol to 60mcg/kg/min and patient more relaxed. Family has been in and out at patients bedside. VSS. Amiodarone continues at 0.5 mg/hr and rate in the 70's. no other changes with vent.
--- NOTE | 2019-05-11 19:03 | NUR ---
No significant changes with patient. Propofol at 60mcg/kg/min, Amiodarone 0.5 mg/hr and NS TKO at 20ml/hr. No vent changes all shift, AC 18, TV 400, FiO2 30%, PEEP 5.0 and sats upper 90%'s. Current temp 98.1.
[2019-05-11 22:00] LABS: Vancomycin, Trough 21.4 ug/mL (5.0-10.0)
--- NOTE | 2019-05-12 00:50 | NUR ---
PROGRESS NOTE 05/11 @ 2100, PAGED DR. FARLEY FOR ADDITIONAL ANTIHYPERTENSIVE. PT TAKES LOSARTAN AT HOME, WILL RESTART IN AM. FOR NOW, GIVE LABETALOL PRN FOR SBP > 160. WILL CONTINUE TO MONITOR.
--- NOTE | 2019-05-12 00:55 | NUR ---
PROGRESS NOTE 05/11 @ [address] APARICIO REGARDING AMIODARONE DRIP. GTT. IS STILL RUNNING, PER CARDIOLOGY NOTE YESTERDAY 05/10 WANT TO RUN DRIP FOR 24 HOURS, THEN TRANSITION TO PO. DRIP STILL RUNNING, PT. HAS OG IN PLACE. PER DR. APARICIO, STOP DRIP, AND START 400MG AMIODARONE PT BID. THIS IS INCREASE FROM DR. Myo NOTE, STILL WANT TO GIVE 400MG FOR LOADING DOSE. VSS. WILL CONTINUE TO MONITOR.
[2019-05-12 04:19] LABS: Anion Gap 7 mmol/L (6-16); Blood Urea Nitrogen 14 mg/dL (8-24); Bun/Creatinine Ratio 13.3 (12.0-20.0); CO2, Blood 32 mmol/L (21-32); Calcium, Blood 8.1 mg/dL (8.5-10.1); Chloride, Blood 100 mmol/L (98-108); Creatinine, Blood 1.05 mg/dL (0.40-1.00); Glomerular Filtration Rate 60 (60-); Glucose, Blood 92 mg/dL (70-99); Magnesium, Blood 2.2 mg/dL (1.6-2.4); Phosphorus, Blood 2.7 mg/dL (2.5-4.9); Potassium, Blood 3.4 mmol/L (3.5-5.5); Sodium, Blood 139 mmol/L (136-145); Triglycerides 167 mg/dL (30-160)
--- NOTE | 2019-05-12 06:24 | NUR ---
SHIFT SUMMARY PT HYPERTENSION CONTROLLED WITH LABETALOL PRN, SEDATION ADEQUATE FOR VENT COMPLIANCE. PT. FOLLOWED COMMANDS DURING VENT WEANING TRIAL, PASSED, LIKELY ELEGIBLE FOR EXTUBATION TODAY. PROPOFOL WAS RESTARTED AT 50, AM CURRENTLY DEECREASING DUE TO OVERSEDATION, HYPOTENSION. CURRENTLY AT 40. OTHERWISE VSS. WILL CONTINUE TO MONITOR.
--- NOTE | 2019-05-12 07:51 | NUR ---
AM Summary Recieved report from Lyle HUMPHREY. Patient supine in bed with HOB at 30 degrees and squirming around in bed. She is intubated and lightly sedated. She has 7.5 ET and is 23cm at lips, vent settings Ac 18, tv 400, fIo2 30% AND peep 5.0 with sats 100%. Amiodarone gtt of and she is SR 76 and BP 99/65. She has RIJ quad lumen central line dressing intact and site WNL's and is infusing Clinimix at 60ml/hr, Propofol 40 mcg/kg/min, and K at 50ml/hr. She has 16Fr Temp Sarkar draining to gravity and has temp of 100.0. OG is to LIS and has small amount of bile looking output. Patient opens eyes but does not follow verbal commands.
--- NOTE | 2019-05-12 09:38 | NUR ---
Patient extubated at 0900 and placed on 4L O2 via NC with sats upper 90%'s and then weaned shortly to RA. She tolerated sips of thin liquids and took PO med. She has good cough and coughed up mederate amount of yellow mucus. Restraints off at 0900 and son at bedside. She is currently hypertensive and allowing her to relax before medicating, Dr Lopez ok with that.
--- NOTE | 2019-05-12 11:47 | NUR ---
Patient has been moving around bed and now sitting at bedside. She continues to tolerate liquids. Her voice high pitched and hard to understand at times. She keeps stating she wants to be un hooked from monitor and get upset and try to explan and she does not want to here. Gave labatelol for hypertension and brought her systolic to 130-140 for 200's. She remains on RA.
--- NOTE | 2019-05-12 13:30 | NUR ---
Patient laying down then sits at bedside. She is tolerating liquids and pudding. VSS after earlier Labatelol 20mg. She is still having difficult time with communicating with squeaky voice.
--- NOTE | 2019-05-12 15:18 | NUR ---
1400 pulled central line after having Miesha RN place 20ga LFA IV. 1455 jaramillo removed and patient up to bedside cammode with one assist. She was hypertensive 160-170's and gave another 20mg Labatelol. Changes linen on bed while she was up. She had 100ml urine out. She is currently resting.
[2019-05-13 03:10] LABS: BASOPHILS ABSOLUTE AUTO 0.06 K/mm3 (0.00-0.23); BASOPHILS PERCENT AUTO 1 % (0-2); EOSINOPHILS ABSOLUTE AUTO 0.53 K/mm3 (0.00-0.68); EOSINOPHILS PERCENT AUTO 4 % (0-6); Hematocrit 40.5 % (33.0-51.0); Hemoglobin 12.8 g/dL (11.5-16.0); IMMATURE GRAN ABSOLUTE AUTO 0.05 K/mm3 (0.00-0.10); IMMATURE GRAN PERCENT AUTO 0 % (0-1); LYMPHOCYTES ABSOLUTE AUTO 2.54 K/mm3 (0.84-5.20); LYMPHOCYTES PERCENT AUTO 21 % (21-46); MONOCYTES ABSOLUTE AUTO 1.04 K/mm3 (0.16-1.47); MONOCYTES PERCENT AUTO 9 % (4-13); Mean Corpuscular HGB 25.3 pg (26.0-34.0); Mean Corpuscular HGB Conc 31.6 g/dL (31.5-36.5); Mean Corpuscular Volume 80 fL (80-100); Mean Platelet Volume 9.9 fL (9.1-12.4); NEUTROPHILS ABSOLUTE AUTO 7.92 K/mm3 (1.96-9.15); NEUTROPHILS PERCENT AUTO 65 % (41-73); Platelet Count 398 K/mm3 (150-400); RDW Coefficient Variation 15.1 % (11.7-14.2); RDW Standard Deviation 43.8 fL (35.1-46.3); Red Blood Cell Count 5.05 M/mm3 (3.80-5.20); White Blood Cell Count 12.14 K/mm3 (4.00-11.30)
[2019-05-13 03:28] LABS: Alanine Aminotransfer (ALT/SGP 26 U/L (12-78); Albumin, Blood 2.7 g/dL (3.4-5.0); Albumin/Globulin Ratio 0.6 (0.8-1.8); Alk Phos 100 U/L (50-136); Anion Gap 7 mmol/L (6-16); Aspartate Aminotrans (AST/SGOT 17 U/L (12-37); Bilirubin, Total 0.5 mg/dL (0.1-1.0); Blood Urea Nitrogen 12 mg/dL (8-24); Bun/Creatinine Ratio 14.2 (12.0-20.0); CO2, Blood 31 mmol/L (21-32); Calcium, Blood 8.3 mg/dL (8.5-10.1); Chloride, Blood 99 mmol/L (98-108); Creatinine, Blood 0.84 mg/dL (0.40-1.00); Globulin, Blood 4.5 g/dL (2.2-4.0); Glomerular Filtration Rate >60 (60-); Glucose, Blood 103 mg/dL (70-99); Magnesium, Blood 1.8 mg/dL (1.6-2.4); Potassium, Blood 3.2 mmol/L (3.5-5.5); Sodium, Blood 137 mmol/L (136-145); Total Protein, Blood 7.2 g/dL (6.4-8.2); Vancomycin, Trough 19.3 ug/mL (5.0-10.0)
--- NOTE | 2019-05-13 05:12 | NUR ---
SHIFT SUMMARY PT RESTING IN ROOM COMFORTABLY AT THIS TIME. NO ACUTE CHANGES IN STATUS T/O NIGHT. TO SLEPT WELL IN SHORT PERIODS OF TIME. PT WAS ASSISTED TO BSC W/ SBA MULTIPLE TIMES T/O NIGHT. PT DENIED ANY PAIN OR SOB T/O NIGHT. PT REPORTS DRY PERSISTENT COUGH THAT WORSENS W/ LYING FLAT. PT REQUESTED HOB ELEVATED T/O NIGHT. PT EDUCATED ON HOW TO ADJUST BED HERSELF. PT ALSO EDUCATED TO USE HER ARMS AND TO FEED AND DRINK W/O ASSIST MUCH POSSIBLE TO IMPROVE STRENGTH. RESP EVEN UNLABORED BUT TACHY T/O NIGHT, W/ SATS >92% ON RA. PT DENIED CP. PT PROVIDED WITH ORAL FLUIDS, JELLO, AND YOGURT T/O NIGHT AND PT TOLERATED WELL. CALL LIGHT IN REACH, PT SON AT BEDSIDE.
--- NOTE | 2019-05-13 10:30 | NUR ---
BEGINNING OF SHIFT Assumed care at 0700. Bedside report received from Luzmaria HUMPHREY. Pt A&O x 4. On room air. Sinus rhythm per monitor. Pt OOB to use bedside commode with SBA. Pt educated on use of flutter valve. Demonstrates correct usage. Pt visiting with family at bedside. Bed in lowest position. Call light in reach. Pt denies need at this time.
--- NOTE | 2019-05-13 13:38 | NUR ---
CALL PLACED TO DR JOE Pt requesting night time sleep aid. States she does not take anything at home to help her sleep. Dr Joe notified. New orders given.
--- NOTE | 2019-05-13 14:36 | NUR ---
Telephone report received from Merlene Yanez RN. Anticipate pt transfer from ICU 6 into PCU 12.
--- NOTE | 2019-05-13 15:09 | NUR ---
TRANSFER TO PCU Pt transferred to room PCU 12. Telephone report given to Brittnee HUMPHREY. Pt escorted to PCU via wheelchair, accompanied by this RN. Educated on transfer. Pt's son followed pt to PCU. Medications, chart, and belongings transferred with patient.
--- NOTE | 2019-05-13 15:09 | NUR ---
The pt arrived to PCU 12; she is sitting up in a chair, alert and oriented with her son Rafi in the room as well. No c/o pain or discomfort at this time. vital signs are stable, and lung sounds are clear. Physical therapist is here to work with her.
--- NOTE | 2019-05-13 22:17 | NUR ---
ASSUMED CARE APPROXIMATELY 1900; FAM AT BEDSIDE; @ 1903 BLOOD BANK COORDINATOR NOTIFIED NURSE OF ELEVATED HR; PT ASSESSED AND WAS ASSYMPTOMATIC; PT SUSTAINED SEVERAL MINUTES OF SINUS TACHYCARDIA IN 160'S AND TOUCHING 170; PROVIDER NOTIFIED @ 1933 PT WAS STILL SUSTAINING SINUS TACH, ORDERS GIVEN FOR ADENOSINE PUSH; THIS NURSE, ANOTHER RN AND IT BUSINESS SYSTEMS ANALYST WERE IN THE ROOM WITH CRASH CART; 6 MG ADENOSINE WAS ADMINISTERED; PT TOLERATED WELL; NO RESPONSE TO HR; 12 MG ADENOSINE WAS ADMINISTERED; HR DROPPED TO 80'S TO 90; PT TALKING AND STATES SHE FEELS FINE; WILL CONTINUE TO MONITOR CLOSELY; CALL LIGHT IN REACH; BED IN LOWEST POSITION
[2019-05-14 04:04] LABS: Hematocrit 40.5 % (33.0-51.0); Hemoglobin 12.6 g/dL (11.5-16.0); Mean Corpuscular HGB 25.3 pg (26.0-34.0); Mean Corpuscular HGB Conc 31.1 g/dL (31.5-36.5); Mean Corpuscular Volume 81 fL (80-100); Platelet Count 438 K/mm3 (150-400); RDW Coefficient Variation 15.2 % (11.7-14.2); Red Blood Cell Count 4.98 M/mm3 (3.80-5.20); White Blood Cell Count 11.22 K/mm3 (4.00-11.30)
[2019-05-14 04:23] LABS: Albumin, Blood 2.6 g/dL (3.4-5.0); Anion Gap 7 mmol/L (6-16); Blood Urea Nitrogen 15 mg/dL (8-24); Bun/Creatinine Ratio 14.6 (12.0-20.0); CO2, Blood 28 mmol/L (21-32); Calcium, Blood 8.8 mg/dL (8.5-10.1); Chloride, Blood 100 mmol/L (98-108); Creatinine, Blood 1.03 mg/dL (0.40-1.00); Glomerular Filtration Rate >60 (60-); Glucose, Blood 124 mg/dL (70-99); Phosphorus, Blood 3.8 mg/dL (2.5-4.9); Potassium, Blood 3.3 mmol/L (3.5-5.5); Sodium, Blood 135 mmol/L (136-145)
--- NOTE | 2019-05-14 07:28 | NUR ---
UPDATE PROVIDER NOTIFIED FOR PT'S POTASIUM; ORDER GIVEN FOR POTASIUM CHLORIDE; WILL CONTINUE TO MONITOR
--- NOTE | 2019-05-14 14:25 | NUR ---
Itzel has been awake, alert, ambulatory in the room and to the bathroom, with assistance for the IV pole when antiobiotics infusing; otherwise, independently ambulatory ad wilbert. No c/o pain today except for mild pain on the left lower ribs. Occasional dry cough noted. C/O nausea this afternoon following lunch and adminstration of potassium. Tolerated the oral potassium much better than the IV potassium which she did not tolerate due to pain at the IV infusion site, despite it being run concurently with NS and at a much reduced rate. Heart rhythm has been sinus rhythm with occasional sinus tachycardia in the low 100s.
--- NOTE | 2019-05-14 18:51 | NUR ---
The pt has been ambulatory, conversant, active in the room and walking independently to the bathroom when not receiving IV antibiotics, eating and drinking with a good appetite. c/o nausea after getting potassium earlier today, but ate 100% of her dinner. Encouraged the pt not to drink too much fluid as the diuresis with her toresemide and aldactone are to help her heart function, and fluid overload would hurt these efforts. She responded favorably to the suggestion, and asked for ice chips instead to keep her fluid intake from exceding 2000cc per 24 hour period. No complaints of pain except for a sore throat this evening. Heart rhthym has been normal sinus to sinus tachycardia today, no episodes of SVT.
--- NOTE | 2019-05-14 19:26 | NUR ---
Report was given to Richie Davis and KAM Shah. The pt is sitting up in bed, watching TV.. Appears alert, calm, and cheerful.
--- NOTE | 2019-05-15 01:56 | NUR ---
ASSUMED CARE APPROXIMATELY 1900; PT A&O; CONVERSING W/ FAMILY IN THE ROOM; PT HOLDING GRANDAUGHTER; PT AMBULATES WELL TO THE BATHROOM; PT ASKS TO HAVE MELOTONIN FOR SLEEP AID; PT MEDICATED PER EMAR; PT SITTING IN RECLINER FOR SLEEPING AFTER FAMILY DEPARTED; PT PLEASANT AND COMPLIANT WITH CARE; WILL CONTINUE TO MONITOR AND ASSESS UNTIL HAND OFF TO DAY SHIFT RN.
[2019-05-15 04:19] LABS: Albumin, Blood 2.6 g/dL (3.4-5.0); Anion Gap 5 mmol/L (6-16); Blood Urea Nitrogen 16 mg/dL (8-24); Bun/Creatinine Ratio 16.3 (12.0-20.0); CO2, Blood 31 mmol/L (21-32); Calcium, Blood 8.7 mg/dL (8.5-10.1); Chloride, Blood 100 mmol/L (98-108); Creatinine, Blood 0.98 mg/dL (0.40-1.00); Glomerular Filtration Rate >60 (60-); Glucose, Blood 99 mg/dL (70-99); Magnesium, Blood 1.9 mg/dL (1.6-2.4); Phosphorus, Blood 4.2 mg/dL (2.5-4.9); Potassium, Blood 3.4 mmol/L (3.5-5.5); Sodium, Blood 136 mmol/L (136-145)
--- NOTE | 2019-05-15 07:39 | NUR ---
ASSUMED CARE: PT RESTING IN RECLINER. VISITOR AT BEDSIDE. NO ACUTE NEEDS OR CONCERNS AT THIS TIME.
--- NOTE | 2019-05-15 10:49 | NUR ---
MESSAGE LEFT AT [facility] OFFICE TO SEE IF DR APARICIO OK WITH DISCHARGE. AWAITING CALL BACK
[2019-05-15] MEDS ORDERED: Culturelle1 CAP PO (11:51)
[2019-05-15] MEDS ORDERED: Benadryl Itch28.3 G1 TOP (11:51)
[2019-05-15] MEDS ORDERED: MELA3 PO (11:53)
[2019-05-15] MEDS ORDERED: METO50ER PO (11:55)
[2019-05-15] MEDS ORDERED: SPIR25 PO (11:55)
[2019-05-15] MEDS ORDERED: TORSE20 PO (11:56)
[2019-05-15] MEDS ORDERED: LINE600 PO (13:21)
[2019-05-15] MEDS ORDERED: ONDA4ODT SL (13:22)
--- NOTE | 2019-05-15 13:55 | NUR ---
IV DC'D WNL. DISCUSSED DC INSTRUCTIONS WITH PT AND FAMILY. INSTRUCTED ABOUT FOLLOW UP APPOINTMENTS AND MEDICATIONS TO TAKE AT HOME. ESCORTED OUT VIA WHEEL CHAIR BY HOSPITAL STAFF. NO ACUTE NEEDS OR CONCERNS AT THIS TIME.
== END 2019-05-15 13:47 | disposition home or self-care (01) | DRG 208 ==
LOC: ER 00:15 → ICUE 04:33 → ICUW 04:33 → ICUE 04:37 → PCU 05-13 14:45
PROVIDERS: Emergency Medicine; Internal Medicine; Internal Medicine Critical Care Medicine; ADMIT Internal Medicine
PROC: 02HV33Z Insertion of Infusion Device into Superior Vena Cava, Percutaneous Approach (ICD-10-PCS; principal; 2019-05-10)
PROC: 0BH18EZ Insertion of Endotracheal Airway into Trachea, Via Natural or Artificial Opening Endoscopic (ICD-10-PCS; 2019-05-10)
PROC: 5A1945Z Respiratory Ventilation, 24-96 Consecutive Hours (ICD-10-PCS; 2019-05-10)
PROC: 5A09357 Assistance with Respiratory Ventilation, Less than 24 Consecutive Hours, Continuous Positive Airway Pressure (ICD-10-PCS; 2019-05-10)
DX: J96.01 Acute respiratory failure with hypoxia (principal); I50.21 Acute systolic (congestive) heart failure; R57.0 Cardiogenic shock; J15.212 Pneumonia due to Methicillin resistant Staphylococcus aureus; E87.2 Acidosis; I47.1 Supraventricular tachycardia; I42.0 Dilated cardiomyopathy; I11.0 Hypertensive heart disease with heart failure; G43.909 Migraine, unspecified, not intractable, without status migrainosus; Z87.891 Personal history of nicotine dependence; F15.10 Other stimulant abuse, uncomplicated; F31.9 Bipolar disorder, unspecified; E87.6 Hypokalemia
CPT/HCPCS: 0099U; 31500; 31720; 36415; 36556; 36600; 51702; 71045; 80048; 80053; 80069; 80202; 81001; 82550; 82803; 82947; 83735; 83880; 84100; 84145; 84478; 84484; 85025; 85027; 87081; 87804; 93005; 93010; 93306; 94002; 94003; 94640; 94660; 96361-59; 96365-59; 96375-59; 96376-59; 97161; 97165; 99291-25; 99292; C1751; J0153; J0282; J0360; J1630; J1650; J1940; J2060; J2250; J2405; J2704; J3010; J3370; J3475; J3480; J7030; J7050; J7060

== ENCOUNTER → 2019-08-04 | Outpatient (CLI) | payer OTHER ==
[~2019-08-04] MED LIST changes: +Benadryl Itch28.3 G1 TOP; +Culturelle1 CAP PO; +LINE600 PO; +MELA3 PO; +METO50ER PO; +SPIR25 PO; +TORSE20 PO
[2019-08-04 18:29] LABS: Source, Urine Clean Catch
[2019-08-04 19:41] LABS: Appearance, Urine Clear (Clear); Bilirubin, Urine Neg (Neg); Blood, Urine 2+ (Neg); Color, Urine Yellow (P-Yellow); Glucose Qualitative, Urine Neg (Neg); Ketones, Urine Neg (Neg); Leukocyte Esterase, Urine 2+ (Neg); Nitrite, Urine Neg (Neg); Protein, Urine 1+ (Neg); Specific Gravity, Urine 1.015 (1.003-1.022); Urobilinogen, Urine NORM (Normal)
[2019-08-04 19:53] LABS: Squamous Epithelial Cells Mod /hpf (Few)
[2019-08-04 19:54] LABS: Bacteria Many /hpf; Mucus Light (0-Heavy)
== END | disposition home or self-care (01) ==
LOC: LAB 12:00 → LAB SHORT 12:00
PROVIDERS: Nurse Practitioner Family
DX: R30.0 Dysuria (principal)
CPT/HCPCS: 81001; 87086

== ENCOUNTER 2019-10-20 12:54 | Emergency (ER) | payer OTHER ==
[~2019-10-20] VITALS: Ht 157.5 cm; Wt 70.3 kg
== END 2019-10-20 13:45 | disposition home or self-care (01) ==
LOC: ER 12:54
DX: R05 Cough (principal); G43.909 Migraine, unspecified, not intractable, without status migrainosus; F31.9 Bipolar disorder, unspecified; N18.9 Chronic kidney disease, unspecified; Z91.030 Bee allergy status; Z88.0 Allergy status to penicillin; Z88.6 Allergy status to analgesic agent; Z88.2 Allergy status to sulfonamides; Z88.8 Allergy status to other drugs, medicaments and biological substances; Z88.1 Allergy status to other antibiotic agents; Z91.018 Allergy to other foods; Z79.899 Other long term (current) drug therapy; Z79.51 Long term (current) use of inhaled steroids
CPT/HCPCS: 99282

== ENCOUNTER 2019-10-26 14:05 | Emergency (ER) | payer OTHER ==
[~2019-10-26] VITALS: Ht 157.5 cm; Wt 68.5 kg
[2019-10-26 15:08] LABS: BASOPHILS ABSOLUTE AUTO 0.05 K/mm3 (0.00-0.23); BASOPHILS PERCENT AUTO 1 % (0-2); EOSINOPHILS ABSOLUTE AUTO 0.31 K/mm3 (0.00-0.68); EOSINOPHILS PERCENT AUTO 5 % (0-6); Hematocrit 39.6 % (33.0-51.0); Hemoglobin 12.9 g/dL (11.5-16.0); IMMATURE GRAN ABSOLUTE AUTO 0.02 K/mm3 (0.00-0.10); IMMATURE GRAN PERCENT AUTO 0 % (0-1); LYMPHOCYTES ABSOLUTE AUTO 1.49 K/mm3 (0.84-5.20); LYMPHOCYTES PERCENT AUTO 22 % (21-46); MONOCYTES ABSOLUTE AUTO 0.71 K/mm3 (0.16-1.47); MONOCYTES PERCENT AUTO 11 % (4-13); Mean Corpuscular HGB Conc 32.6 g/dL (31.5-36.5); Mean Corpuscular Volume 86 fL (80-100); Mean Platelet Volume 8.9 fL (9.1-12.4); NEUTROPHILS ABSOLUTE AUTO 4.16 K/mm3 (1.96-9.15); NEUTROPHILS PERCENT AUTO 62 % (41-73); Platelet Count 263 K/mm3 (150-400); RDW Coefficient Variation 13.3 % (11.7-14.2); RDW Standard Deviation 41.4 fL (35.1-46.3); Red Blood Cell Count 4.61 M/mm3 (3.80-5.20); White Blood Cell Count 6.74 K/mm3 (4.00-11.30)
[2019-10-26 15:26] LABS: Alanine Aminotransfer (ALT/SGP 20 U/L (12-78); Albumin, Blood 3.3 g/dL (3.4-5.0); Albumin/Globulin Ratio 0.8 (0.8-1.8); Alk Phos 77 U/L (50-136); Anion Gap 6 mmol/L (6-16); Aspartate Aminotrans (AST/SGOT 24 U/L (12-37); Bilirubin, Total 0.3 mg/dL (0.1-1.0); Blood Urea Nitrogen 11 mg/dL (8-24); Bun/Creatinine Ratio 11.2 (12.0-20.0); CO2, Blood 25 mmol/L (21-32); Calcium, Blood 8.7 mg/dL (8.5-10.1); Chloride, Blood 105 mmol/L (98-108); Creatinine, Blood 0.99 mg/dL (0.40-1.00); Glomerular Filtration Rate >60 (60-); Glucose, Blood 75 mg/dL (70-99); Potassium, Blood 4.4 mmol/L (3.5-5.5); Sodium, Blood 136 mmol/L (136-145); Total Protein, Blood 7.3 g/dL (6.4-8.2); Troponin I <0.015 ng/mL (0.000-0.040)
[2019-10-26] MEDS ORDERED: Albuterol2.5 MG/0.5 INH (17:24)
[2019-10-26] MEDS ORDERED: Zithromax250 MG PO (17:24)
[2019-10-26] MEDS ORDERED: BENZ100A PO (17:24)
== END 2019-10-26 17:49 | disposition home or self-care (01) ==
LOC: ER 14:05
PROVIDERS: Physician Assistant
DX: J18.9 Pneumonia, unspecified organism (principal); F31.9 Bipolar disorder, unspecified; J44.9 Chronic obstructive pulmonary disease, unspecified; I50.9 Heart failure, unspecified; N18.9 Chronic kidney disease, unspecified; Z88.8 Allergy status to other drugs, medicaments and biological substances; Z88.0 Allergy status to penicillin; Z88.1 Allergy status to other antibiotic agents; Z91.011 Allergy to milk products; Z91.018 Allergy to other foods; Z88.2 Allergy status to sulfonamides; Z91.030 Bee allergy status; Z79.899 Other long term (current) drug therapy
CPT/HCPCS: 36415; 71046; 80053; 83880; 84484; 85025; 93005; 93010; 94640; 99285-25

== ENCOUNTER → 2020-05-13 | Outpatient (CLI) | payer OTHER ==
[~2020-05-13] MED LIST changes: +Albuterol2.5 MG/0.5 INH; +ONDA4ODT MM
== END | disposition home or self-care (01) ==
LOC: LAB 18:58 → LAB SHORT 18:58
DX: H60.501 Unspecified acute noninfective otitis externa, right ear (principal)
CPT/HCPCS: 87070; 87077; 87147; 87186; 87205

== ENCOUNTER → 2022-05-30 | Outpatient (CLI) | payer OTHER ==
[2022-05-30 17:26] LABS: Source, Urine Clean Catch
[2022-05-30 18:19] LABS: Appearance, Urine Hazy (Clear); Bilirubin, Urine Neg (Neg); Blood, Urine 1+ (Neg); Color, Urine Yellow (P-Yellow); Glucose Qualitative, Urine Neg (Neg); Ketones, Urine 1+ (Neg); Leukocyte Esterase, Urine 1+ (Neg); Nitrite, Urine Pos (Neg); Protein, Urine 1+ (Neg); Urobilinogen, Urine 1+ (Normal)
[2022-05-30 18:37] LABS: Red Blood Cells, Urine 0-2 /hpf (0-2); Squamous Epithelial Cells Mod /hpf (Few)
[2022-05-30 18:38] LABS: Bacteria Many /hpf; Calcium Oxalate Crystals Many /hpf
== END | disposition home or self-care (01) ==
LOC: LAB 16:00 → LAB SHORT 16:00
PROVIDERS: Internal Medicine Nephrology
DX: N18.31 Chronic kidney disease, stage 3a (principal); R39.9 Unspecified symptoms and signs involving the genitourinary system
CPT/HCPCS: 81001; 87077; 87086; 87186

== ENCOUNTER 2022-07-10 14:47 | Emergency (ER) | payer OTHER ==
[~2022-07-10] VITALS: Ht 160 cm; Wt 68.0 kg
[2022-07-10] MEDS ORDERED: CEFD300 PO (14:54)
== END 2022-07-10 14:53 | disposition home or self-care (01) ==
LOC: ER 14:47
DX: H66.93 Otitis media, unspecified, bilateral (principal); J44.9 Chronic obstructive pulmonary disease, unspecified; I50.9 Heart failure, unspecified; N18.9 Chronic kidney disease, unspecified; Z88.0 Allergy status to penicillin; Z88.2 Allergy status to sulfonamides; Z88.8 Allergy status to other drugs, medicaments and biological substances; Z88.1 Allergy status to other antibiotic agents; Z91.038 Other insect allergy status; Z91.011 Allergy to milk products; Z79.899 Other long term (current) drug therapy
CPT/HCPCS: 99282

== ENCOUNTER 2023-11-18 19:42 | Emergency (ER) | payer OTHER ==
[~2023-11-18] VITALS: Ht 157.5 cm; Wt 68.0 kg
[~2023-11-18 19:42] MED LIST changes: +CEFD300 PO
[2023-11-18 20:24] VITALS: BP 194/98
== END 2023-11-18 21:01 | disposition home or self-care (01) ==
LOC: ER 19:42
DX: H10.9 Unspecified conjunctivitis (principal); J44.9 Chronic obstructive pulmonary disease, unspecified; I50.9 Heart failure, unspecified; N18.9 Chronic kidney disease, unspecified; Z88.0 Allergy status to penicillin; Z91.011 Allergy to milk products; Z91.018 Allergy to other foods; Z91.038 Other insect allergy status; Z91.030 Bee allergy status; Z88.1 Allergy status to other antibiotic agents; Z88.2 Allergy status to sulfonamides; Z88.6 Allergy status to analgesic agent; Z88.8 Allergy status to other drugs, medicaments and biological substances
CPT/HCPCS: 99282

== ENCOUNTER 2024-02-14 21:42 | Inpatient (IN) | payer OTHER ==
[~2024-02-14] VITALS: Ht 157.5 cm; Wt 72.7 kg
[~2024-02-14 21:42] MED LIST changes: +METO25ER PO; +Prinivil10 MG PO
[2024-02-14] MEDS ORDERED: Ketorolac Tromethamine 30mg Vial IV ONE (22:05)
[2024-02-14] MEDS ORDERED: NS 1,000 ML IV SCH (22:05)
[2024-02-14] MEDS ORDERED: Ondansetron HCl 2 MG / ML 2ML Vial IV ONE (22:05)
[2024-02-14 22:51] LABS: BASOPHILS ABSOLUTE AUTO 0.13 K/mm3 (0.00-0.23); BASOPHILS PERCENT AUTO 2 % (0-2); EOSINOPHILS ABSOLUTE AUTO 0.21 K/mm3 (0.00-0.68); EOSINOPHILS PERCENT AUTO 2 % (0-6); Hematocrit 45.1 % (33.0-51.0); Hemoglobin 15.1 g/dL (11.5-16.0); IMMATURE GRAN ABSOLUTE AUTO 0.02 K/mm3 (0.00-0.10); IMMATURE GRAN PERCENT AUTO 0 % (0-1); LYMPHOCYTES ABSOLUTE AUTO 3.34 K/mm3 (0.84-5.20); LYMPHOCYTES PERCENT AUTO 38 % (21-46); MONOCYTES ABSOLUTE AUTO 0.74 K/mm3 (0.16-1.47); MONOCYTES PERCENT AUTO 9 % (4-13); Mean Corpuscular HGB 27.8 pg (26.0-34.0); Mean Corpuscular HGB Conc 33.5 g/dL (31.5-36.5); Mean Corpuscular Volume 83 fL (80-100); Mean Platelet Volume 9.4 fL (9.1-12.4); NEUTROPHILS ABSOLUTE AUTO 4.29 K/mm3 (1.96-9.15); NEUTROPHILS PERCENT AUTO 49 % (41-73); Platelet Count 422 K/mm3 (150-400); RDW Coefficient Variation 13.7 % (11.7-14.2); RDW Standard Deviation 41.9 fL (35.1-46.3); Red Blood Cell Count 5.44 M/mm3 (3.80-5.20); White Blood Cell Count 8.73 K/mm3 (4.00-11.30)
[2024-02-14 23:00] LABS: Albumin, Blood 3.6 g/dL (3.4-5.0); Bilirubin, Total 0.5 mg/dL (0.1-1.0); Bun/Creatinine Ratio 25.5 (12.0-20.0); Calcium, Blood 8.8 mg/dL (8.5-10.1); Creatinine, Blood 1.02 mg/dL (0.40-1.00); Globulin, Blood 3.5 g/dL (2.2-4.0); Magnesium, Blood 2.4 mg/dL (1.6-2.4); Potassium, Blood 4.8 mmol/L (3.5-5.5); Total Protein, Blood 7.1 g/dL (6.4-8.2)
[2024-02-14 23:18] LABS: Influenza A, PCR NEGATIVE (NEGATIVE); Influenza B, PCR NEGATIVE (NEGATIVE); Resp Syncytial Virus, PCR NEGATIVE (NEGATIVE); SARS-Cov-2 (COVID-19) PCR, MMC NEGATIVE (NEGATIVE)
[2024-02-14 23:20] LABS: Source, Urine Clean Catch
[2024-02-15 00:03] LABS: Bilirubin, Urine Neg (Neg); Blood, Urine 1+ (Neg); Glucose Qualitative, Urine Neg (Neg); Ketones, Urine Neg (Neg); Leukocyte Esterase, Urine 2+ (Neg); Nitrite, Urine Pos (Neg); Protein, Urine Neg (Neg); Specific Gravity, Urine 1.015 (1.003-1.022); Urobilinogen, Urine NORM (Normal); pH, Urine 6.5 (5.0-8.0)
[2024-02-15 00:20] LABS: Appearance, Urine Hazy (Clear); Color, Urine Pale Yellow (P-Yellow)
[2024-02-15 00:21] LABS: Bacteria Many /hpf; Red Blood Cells, Urine 0-2 /hpf (0-2); Squamous Epithelial Cells Rare /hpf (Few)
[2024-02-15] MEDS ORDERED: Nitroglycerin 1 INCH/GM PKT TOP ONE (00:35)
[2024-02-15] MEDS ORDERED: Metoclopramide HCl 5MG / ML 2ML Vial IV ONE (00:35)
[2024-02-15] MEDS ORDERED: Nitrofurantoin/Nitrofuran Mac 100 MG Cap PO ONE (00:40)
[2024-02-15] MEDS ORDERED: Ondansetron HCl 2 MG / ML 2ML Vial IV PRN (01:40)
[2024-02-15] MEDS ORDERED: Enoxaparin 40 MG/0.4 ML SYR SC SCH (02:00)
[2024-02-15] MEDS ORDERED: NS 1,000 ML IV SCH (03:00)
[2024-02-15] MEDS ORDERED: LOSA50 PO (03:08)
[2024-02-15] MEDS ORDERED: DULO30 PO (03:09)
[2024-02-15] MEDS ORDERED: AMLO5 PO (03:10)
[2024-02-15] MEDS ORDERED: METO50ER PO (03:14)
[2024-02-15 03:58] LABS: BASOPHILS PERCENT AUTO 2 % (0-2); EOSINOPHILS ABSOLUTE AUTO 0.22 K/mm3 (0.00-0.68); EOSINOPHILS PERCENT AUTO 4 % (0-6); Hematocrit 41.9 % (33.0-51.0); Hemoglobin 13.7 g/dL (11.5-16.0); IMMATURE GRAN ABSOLUTE AUTO 0.01 K/mm3 (0.00-0.10); IMMATURE GRAN PERCENT AUTO 0 % (0-1); LYMPHOCYTES ABSOLUTE AUTO 2.87 K/mm3 (0.84-5.20); LYMPHOCYTES PERCENT AUTO 47 % (21-46); MONOCYTES ABSOLUTE AUTO 0.58 K/mm3 (0.16-1.47); MONOCYTES PERCENT AUTO 10 % (4-13); Mean Corpuscular HGB 27.8 pg (26.0-34.0); Mean Corpuscular HGB Conc 32.7 g/dL (31.5-36.5); Mean Corpuscular Volume 85 fL (80-100); Mean Platelet Volume 9.1 fL (9.1-12.4); NEUTROPHILS PERCENT AUTO 38 % (41-73); Platelet Count 316 K/mm3 (150-400); RDW Coefficient Variation 13.7 % (11.7-14.2); RDW Standard Deviation 42.5 fL (35.1-46.3); Red Blood Cell Count 4.92 M/mm3 (3.80-5.20); White Blood Cell Count 6.08 K/mm3 (4.00-11.30)
--- NOTE | 2024-02-15 03:59 | NUR ---
ADMIT NOTE HANDOFF REPORT RECEIVED FROM COSMETIC MANAGERKAM NELSON. PT ARRIVED TO FLOOR VIA GURNEY. PT ORIENTED TO UNIT. CALL BUTTON WITHIN REACH. IV FLUIDS STARTED ORDERED. TELEMETRY IS IN PLACE. PERSONAL POSSESSIONS WITH THE PATIENT.
[2024-02-15 04:08] VITALS: BP 136/84
[2024-02-15 04:19] LABS: Albumin, Blood 3.3 g/dL (3.4-5.0); Albumin/Globulin Ratio 1.1 (0.8-1.8); Bilirubin, Total 0.6 mg/dL (0.1-1.0); Bun/Creatinine Ratio 21.1 (12.0-20.0); Calcium, Blood 8.7 mg/dL (8.5-10.1); Creatinine, Blood 1.09 mg/dL (0.40-1.00); Potassium, Blood 4.5 mmol/L (3.5-5.5); Total Protein, Blood 6.3 g/dL (6.4-8.2)
[2024-02-15 07:40] VITALS: BP 109/68
[2024-02-15] MEDS ORDERED: Acetaminophen 325 MG TABLET PO PRN (08:00)
[2024-02-15] MEDS ORDERED: Nitrofurantoin/Nitrofuran Mac 100 MG Cap PO SCH (09:00)
[2024-02-15 10:15] VITALS: BP 123/68
[2024-02-15] MEDS ORDERED: FentaNYL Citrate 50 MCG/ML 2 ML Injection ONE (10:23)
[2024-02-15] MEDS ORDERED: FentaNYL Citrate 50 MCG/ML 2 ML Injection IV PRN (10:25)
[2024-02-15 10:32] VITALS: BP 131/63
--- NOTE | 2024-02-15 10:36 | NUR ---
1015- THIS RN CALLED DR. FOFANA AND INFORMED HIM THAT PT HAD INCREASING CHEST PAIN TO A 8.5/10, ANXIETY, AND NAUSEA. VITALS TAKEN AND ALL WNL. ZOFRAN GIVEN FOR NAUSEA. PT TO HAVE A STRESS TEST AT 2PM. NITRO PASTE JUST REMOVED. PT NEEDS SOMETHING FOR PAIN. MD TO ORDER PAIN MEDS. RN ALSO INFORMED MD THAT EKG WAS BEING PERFORMED AT TIME OF CALL.
--- NOTE | 2024-02-15 10:45 | NUR ---
1035- PT REPORTS PAIN 3/10 IN CHEST. PT IS NOW CALM AND REQUESTS TO SLEEP. LIGHTS TURNED OFF, BLINDS CLOSED, AND PT STARTING TO FALL ASLEEP. EKG SHOWED NSR AND WNL.
[2024-02-15 12:05] VITALS: BP 111/58
--- NOTE | 2024-02-15 16:25 | NUR ---
2342- REPORT GIVEN TO MEDICAL RN DIMITRI MCDANIELS. ALL QUESTIONS ANSWERED.
[2024-02-15 20:43] VITALS: BP 136/70
[2024-02-16 04:05] VITALS: BP 138/66
--- NOTE | 2024-02-16 04:15 | NUR ---
SHIFT SUMMARY 53 YR F ADMITTED ON 02/14/24. FULL CODE. NO ACUTE CHANGES THIS SHIFT. PT HAS HAD NO C/O PAIN OR DISCOMFORT THIS SHIFT. SHE APPEARS TO HAVE RESTED COMFORTABLY WATCHING TV AND SLEEPING THROUGHOUT THIS SHIFT. SHE IS INDEPENDANT IN THE ROOM AND CALLS APPROPRIATELY FOR ASSISTANCE.
[2024-02-16 07:38] VITALS: BP 157/78
[2024-02-16 15:55] VITALS: BP 168/83
--- NOTE | 2024-02-16 16:17 | NUR ---
PATIENT REPORTS NO CHEST PAIN NO DIZZINESS NO WEAKNESS OR FATIGUE. PATIENT REPORTS SOME NUMBNESS IN LOWER EXTREMITIES DUE TO POOR VASCULATION. PATIENT STATED, SHE HAD A ECHOCARDIOGRAM SATURDAY AND HAD AN SCHEDULE ULTRASOUND. STRESS TEST PERFORMED BY NUCLEAR MEDICINE PERFORMED TODAY, PT TOLERATED IT WELL.. NSR 69 ON TELEMETRY. VSS STABLES, NEW IV LINE PLACED ON LEFT WRIST.
--- NOTE | 2024-02-16 16:22 | NUR ---
PATIENT REPORT BOTTOM OF FEET NUMB BUT COULD FEEL MY HAND. SHE ALSO REPORTED THAT HER LITTLE DIGITS ON TOES WHERE NUMB WELL.
[2024-02-16 20:21] VITALS: BP 147/82
[2024-02-17 02:34] VITALS: BP 137/65
--- NOTE | 2024-02-17 05:29 | NUR ---
SHIFT SUMMARY PT A&OX4 AND ANSWERS QUESTIONS APPROPRIATELY. PT KEPT NPO AFTER MIDNIGHT FOR 2ND HALF OF STRESS TEST ON 02/17/24. VSS, NO COMPLAINTS OF CP/PRESSURE OR SOB AT THIS TIME. PT SPEND MOST OF SHIFT IN BED WITH EYES CLOSED AND RESPIRATIONS EVEN AND UNLABORED. MEDICATED FOR HS MEDICATIONS AND NAUSEA PRN. NO ACUTE EVENTS AT THIS TIME. PT LEFT IN A POSITION OF SAFETY WITH FALL PRECAUTIONS IN PLACE AND CALL LIGHT IN REACH.
[2024-02-17 05:37] LABS: Bun/Creatinine Ratio 16.8 (12.0-20.0); Calcium, Blood 8.5 mg/dL (8.5-10.1); Creatinine, Blood 1.13 mg/dL (0.40-1.00); Potassium, Blood 3.8 mmol/L (3.5-5.5)
[2024-02-17 07:23] VITALS: BP 138/85
[2024-02-17] MEDS ORDERED: AmLODIPine Besylate 5 MG Tab PO SCH (09:00)
[2024-02-17] MEDS ORDERED: Metoprolol Succinate 50 MG TABCR PO SCH (09:00)
[2024-02-17] MEDS ORDERED: DULoxetine HCL 20 MG Cap DR PO SCH (09:00)
[2024-02-17] MEDS ORDERED: Losartan Potassium 50 MG Tab PO SCH (09:00)
[2024-02-17 09:17] LABS: U Amphetamine Screen DETECTED; U Barbituate Screen Not Detected; U Benzodiazapine Screen Not Detected; U Cocaine Screen Not Detected; U Methadone Screen Not Detected; U Methamphetamine Screen DETECTED
[2024-02-17 09:18] LABS: U Buprenorphine Screen Not Detected; U Cannabinoids Screen Not Detected; U Opiates Screen Not Detected; U Oxycodone Screen Not Detected; U Phencyclidine Screen Not Detected
[2024-02-17] MEDS ORDERED: Regadenoson 0.4 MG/5 ML SYRINGE ONE (13:15)
[2024-02-17 14:42] VITALS: BP 154/73
[2024-02-17 18:18] LABS: Anti-Xa UFH, PHA Monitoring 0.28 IU/mL; International Normalized Ratio 0.92; Prothrombin Time Results 9.9 Sec (9.7-11.5)
[2024-02-17] MEDS ORDERED: Dose Adjust by Pharmacy XX STA (18:57)
[2024-02-17] MEDS ORDERED: Heparin Sodium,Porcine/0.5 NS 500 ML IV SCH (19:00)
[2024-02-17] MEDS ORDERED: Heparin Sodium 5000 Units/ML 1ML MDV IV ONE (19:00)
[2024-02-17 19:23] VITALS: BP 140/78
--- NOTE | 2024-02-17 20:11 | NUR ---
SHIFT SUMMARY- REPORT COMPLETED WITH NIGHT RN. BEDSIDE REPORT NOT COMPLETED THE CAFETERIA AIDE WAS AT THE BEDSIDE SPEAKING TO THE PT AND FAMILY FRIEND. PER CAFETERIA AIDE AFTER THE TALK WITH THE PT HEPARIN DRIP WAS DC'D PRIOR TO BEING STARTED. PT HAS HAD SOME NAUSEA TODAY AND SHE HAD SOME EMESIS AROUND THE TIME OF HER STRESS TEST. PT IN BED, CALL LIGHT IN REACH NO S&S OF DISTRESS NOTED AT THE TIME OF SHIFT CHANGE.
[2024-02-18] VITALS (8 sets, daily range): BP systolic 118–146; BP diastolic 71–103
[2024-02-18 05:14] LABS: Hematocrit 41.3 % (33.0-51.0); Hemoglobin 13.7 g/dL (11.5-16.0); Mean Corpuscular HGB 27.7 pg (26.0-34.0); Mean Corpuscular HGB Conc 33.2 g/dL (31.5-36.5); Mean Corpuscular Volume 84 fL (80-100); Mean Platelet Volume 9.2 fL (9.1-12.4); Platelet Count 279 K/mm3 (150-400); RDW Coefficient Variation 13.2 % (11.7-14.2); RDW Standard Deviation 40.5 fL (35.1-46.3); Red Blood Cell Count 4.94 M/mm3 (3.80-5.20); White Blood Cell Count 5.97 K/mm3 (4.00-11.30)
[2024-02-18 05:35] LABS: Calcium, Blood 9.1 mg/dL (8.5-10.1); Creatinine, Blood 1.26 mg/dL (0.40-1.00); Potassium, Blood 4.2 mmol/L (3.5-5.5)
--- NOTE | 2024-02-18 05:57 | NUR ---
SHIFT SUMMARY PT A&OX4 AND ANSWERS QUESTIONS APPROPRIATELY. DR PRASAD AT BEDSIDE AT BEGINNING OF SHIFT CHANGE TO DISCUSS WITH PT NEXT STEP IN PLAN OF CARE. DR MORALEZ TO BE CONSULTED ON CARE PLAN ON 02/17. PT KEPT NPO AFTER MIDNIGHT IN CASE THEY MOVE FORWARD WITH THE ANGIOGRAM. VSS, NO COMPLAINTS OF CP/PRESSURE OR SOB DURING SHIFT. PT SPENT MOST OF SHIFT IN BED WITH EYES CLOSED AND RESPIRATIONS EVEN AND UNLABORED. NO ACUTE EVENTS AT THIS TIME. PT LEFT IN A POSITION OF SAFETY WITH FALL PRECAUTIONS ON PLACE AND CALL LIGHT IN REACH.
--- NOTE | 2024-02-18 08:19 | NUR ---
CALLED DR MORALEZ PER DR JOE- PT STATES SHE IS WAITING FOR DR MORALEZ TO CLEAR HER FOR THE CLEATER PROCEDURE. PER CARDIOLOGY NOTE RISK/BENIFIT IS QUESTIONABLE D/T RENAL FUNCTION. CALLED DR MORALEZ ON HIS CELL. HE WILL COME TO SEE THE PT. CALLED DR MANLEY AND LEFT A MESSAGE. WAITING FOR A CALL BACK.
[2024-02-18] MEDS ORDERED: NS 1,000 ML IV SCH (08:30)
[2024-02-18] MEDS ORDERED: N-Acetylcysteine 600 MG CAP PO SCH (09:00)
[2024-02-18] MEDS ORDERED: Nitrofurantoin/Nitrofuran Mac 100 MG Cap PO SCH (09:00)
[2024-02-18] MEDS ORDERED: FentaNYL Citrate 50 MCG/ML 2 ML Injection ONE (11:38)
[2024-02-18] MEDS ORDERED: NS 1,000 ML IV ONE ×2 (11:38→11:50)
[2024-02-18] MEDS ORDERED: Midazolam HCl 1MG / ML 2ML Vial ONE (11:38)
[2024-02-18] MEDS ORDERED: NS 250 ML IV ONE (11:50)
[2024-02-18] MEDS ORDERED: Nitroglycerin 2 MG/20 ML BTL ONE (11:51)
[2024-02-18] MEDS ORDERED: Heparin Sodium 1000 Units/ML 10ML MDV ONE (11:51)
[2024-02-18] MEDS ORDERED: Verapamil HCL 2.5 MG/ML 2ML Injection ONE (11:51)
[2024-02-18] MEDS ORDERED: Atropine Sulfate 0.1 MG/ML 10ML SYR ONE (12:07)
[2024-02-18] MEDS ORDERED: Ondansetron HCl 2 MG / ML 2ML Vial ONE (12:23)
--- NOTE | 2024-02-18 13:42 | NUR ---
TRANSFER NOTE- PT WENT TO FOOD CHECKERS AND CASHIERS SUPERVISOR AND WAS TRANSFERED TO PCU POST CATH. TELEPHONE REPORT COMPLETED WITH BAG BUNDLER. THEY ARE AWARE OF THE FLUID ORDER AT 75 ML PER HOUR TO BE DC'D 10 HOURS POST CARDIAC CATH.
--- NOTE | 2024-02-18 16:09 | NUR ---
"Spiritual Care | Nurse Referral Pt. is awake in bed post procedure when she welcomes my visit. Pt. is pleasant, and verbalized relief that she didn't need to get stents. Facilitated a short life review and considered matters of desi and belief. Pt. displayed evidence of trust, awareness, and engagement. Prayed with Pt. Pt. verbalized gratitude for the spiritual care visit and welcomed this manager operating to return in the morning."
--- NOTE | 2024-02-18 18:00 | NUR ---
ASSUMED CARE FROM ACADEMIC ASSOCIATE FOLLOWING ANGIO. RIGHT WRIST SITE WITH TR BAND AND ARM BOARD ON ARRIVAL. NO SWELLING, BLEEDING OR HEMATOMA. RECOVERED PER ORDERS. TEGADERM IN PLACE, CAP REFILL <3. A/A/OX4, VSS, PLEASANT AND COOPERATIVE WITH CARE. WILL CONTINUE TO MONITOR AND TREAT UNTIL CHANGE OF SHIFT.
--- NOTE | 2024-02-18 20:08 | NUR ---
ASSUMPTION OF CARE AFTER RECEIVING REPORT FROM ALFONSO HUMPHREY, THIS RN ASSUMED CARE AT APPROX 1915. PATIENT ALERT AND ORIENTED X4. COMMUNICATES NEEDS EFFECTIVELY. TELEMETRY SHOWING SINUS 60s-70s. BP STABLE. DENIES CHEST PAIN, PRESSURE. S/P ANGIOGRAM WITH R RADIAL SITE. SITE WNL - SOFT, NONTENDER. NO HEMATOMA NOTED. TEGADERM DRESSING C/D/I. ARMBOARD IN PLACE. ON ROOM AIR, SATs >90%. RR EVEN, UNLABORED. INDEPENDENT WITH ADLs. PRN SBA FOR CORD, DEVICE MANAGEMENT WITH MOBILITY. IVF INFUSING PER EMAR. CALL LIGHT IN REACH.
--- NOTE | 2024-02-18 22:28 | NUR ---
REPORT GIVEN TO STORM HUMPHREY TO ASSUME CARE ON MEDICAL FLOOR.
[2024-02-19 03:35] VITALS: BP 139/71
[2024-02-19 05:09] LABS: Hematocrit 40.5 % (33.0-51.0); Hemoglobin 13.2 g/dL (11.5-16.0)
[2024-02-19 05:33] LABS: Albumin, Blood 3.1 g/dL (3.4-5.0); Anion Gap 11 mmol/L (3-11); Blood Urea Nitrogen 24 mg/dL (8-24); Bun/Creatinine Ratio 21.4 (12.0-20.0); CO2, Blood 24 mmol/L (21-32); Calcium, Blood 8.7 mg/dL (8.5-10.1); Chloride, Blood 109 mmol/L (98-108); Creatinine, Blood 1.12 mg/dL (0.40-1.00); Glomerular Filtration Rate 59 (60-); Glucose, Blood 110 mg/dL (70-99); Phosphorus, Blood 4.7 mg/dL (2.5-4.9); Potassium, Blood 3.8 mmol/L (3.5-5.5); Sodium, Blood 140 mmol/L (136-145)
--- NOTE | 2024-02-19 06:37 | NUR ---
End of shift note/ Transfer note. Pt transferred from PCU to 302 this shift. Pt was oriented to room and call light system. Pt remains on tele SB 50-60s. Angio site to right wrist with dressing intact, no bruising noted. Pt has been ambulating to the bathroom independently. Pt is able to make needs known, call light is within reach.
[2024-02-19 07:06] VITALS: BP 117/65
[2024-02-19] MEDS ORDERED: N-Acetylcysteine 600 MG CAP PO SCH (09:00)
[2024-02-19] MEDS ORDERED: VISBIOME 112.51 EACH PO (12:53)
[2024-02-19] MEDS ORDERED: MACRODANTIN100 M1 PO (12:53)
--- NOTE | 2024-02-19 17:43 | NUR ---
DISCHARGE A&OX4, COOPERATIVE WITH CARE. NO ACUTE EVENTS THIS SHIFT. IV REMOVED. DISCHARGE PACKET DISCUSSED WITH DAWSON HUMPHREY. NO QUESTIONS OR CONCERNS NOTED. PATIENT DISCHARGED AT 1430 VIA WHEELCHAIR ESCORT.
== END 2024-02-19 14:30 | disposition home or self-care (01) | DRG 917 ==
LOC: ER 21:42 → PCU 21:43 → ER 21:43 → MEDS 21:43 → PCU 02-15 02:51 → MEDS 02-15 17:00 → PCU 02-15 17:00 → MEDS 02-15 21:14 → PCU 02-17 17:04 → MEDS 02-17 17:04 → PCU 02-17 17:04 → MEDS 02-17 17:05 → PCU 02-18 11:32 → MEDS 02-18 22:49 → ENPENDDIS 02-19 11:04 → MEDS 02-19 14:30
PROVIDERS: Family Medicine; Internal Medicine; Internal Medicine Nephrology; Student in an Organized Health Care Education/Training Program; ADMIT Internal Medicine
PROC: B2111ZZ Fluoroscopy of Multiple Coronary Arteries using Low Osmolar Contrast (ICD-10-PCS; principal; 2024-02-18)
PROC: 4A023N7 Measurement of Cardiac Sampling and Pressure, Left Heart, Percutaneous Approach (ICD-10-PCS; 2024-02-18)
DX: T43.651A Poisoning by methamphetamines accidental (unintentional), initial encounter (principal); I21.A1 Myocardial infarction type 2; N39.0 Urinary tract infection, site not specified; I47.10 Supraventricular tachycardia, unspecified; N17.9 Acute kidney failure, unspecified; I13.0 Hypertensive heart and chronic kidney disease with heart failure and stage 1 through stage 4 chronic kidney disease, or unspecified chronic kidney disease; I50.42 Chronic combined systolic (congestive) and diastolic (congestive) heart failure; F31.9 Bipolar disorder, unspecified; R00.1 Bradycardia, unspecified; I25.5 Ischemic cardiomyopathy; E86.9 Volume depletion, unspecified; D75.1 Secondary polycythemia; D63.1 Anemia in chronic kidney disease; F15.90 Other stimulant use, unspecified, uncomplicated; B96.20 Unspecified Escherichia coli [E. coli] as the cause of diseases classified elsewhere; E88.09 Other disorders of plasma-protein metabolism, not elsewhere classified; N18.30 Chronic kidney disease, stage 3 unspecified; G43.909 Migraine, unspecified, not intractable, without status migrainosus; K40.90 Unilateral inguinal hernia, without obstruction or gangrene, not specified as recurrent; Z87.19 Personal history of other diseases of the digestive system; Z98.51 Tubal ligation status; Z90.89 Acquired absence of other organs; Z90.49 Acquired absence of other specified parts of digestive tract; Z98.890 Other specified postprocedural states; Z88.1 Allergy status to other antibiotic agents; Z91.038 Other insect allergy status; Z91.011 Allergy to milk products; Z88.0 Allergy status to penicillin; Z88.2 Allergy status to sulfonamides; Z88.8 Allergy status to other drugs, medicaments and biological substances; Z91.018 Allergy to other foods
CPT/HCPCS: 0241U; 36415; 71046; 76770; 76937; 78452; 80048; 80053; 80069; 81001; 83690; 83735; 83880; 84484; 85014; 85018; 85025; 85027; 85520; 85610; 85730; 87077; 87086; 87186; 93005; 93010; 93017; 93458; 96372; 96374; 96375; 96376; 99152; 99285-25; A9270; A9500; C1769; C1887; C1894; G0378; J0461; J1644; J1650; J1885; J2250; J2405; J2765; J2785; J3010; J7030; J7050; Q9967

== ENCOUNTER 2024-07-28 10:28 | Emergency (ER) | payer OTHER ==
[~2024-07-28] VITALS: Ht 160 cm; Wt 68.0 kg
[~2024-07-28 10:28] MED LIST changes: +DULO30 PO; +LOSA50 PO; +MACRODANTIN100 M1 PO; +VISBIOME 112.51 EACH PO
[2024-07-28] MEDS ORDERED: Losartan Potassium 25 MG Tab PO ONE (10:50)
[2024-07-28] MEDS ORDERED: Metoprolol Succinate 50 MG TABCR PO ONE (10:50)
[2024-07-28] MEDS ORDERED: MONDOXYNE NL100 MG PO (11:57)
[2024-07-28 12:40] VITALS: BP 202/102
[2024-07-28] MEDS ORDERED: Norco 5-325 Ta1 EACH PO (12:47)
== END 2024-07-28 13:05 | disposition home or self-care (01) ==
LOC: ER 10:28
DX: S62.336A Displaced fracture of neck of fifth metacarpal bone, right hand, initial encounter for closed fracture (principal); R07.81 Pleurodynia; G43.909 Migraine, unspecified, not intractable, without status migrainosus; N18.9 Chronic kidney disease, unspecified; J44.9 Chronic obstructive pulmonary disease, unspecified; I50.9 Heart failure, unspecified; Z91.030 Bee allergy status; Z88.0 Allergy status to penicillin; Z91.011 Allergy to milk products; Z91.018 Allergy to other foods; Z88.6 Allergy status to analgesic agent; Z88.8 Allergy status to other drugs, medicaments and biological substances; Z88.2 Allergy status to sulfonamides; Z88.1 Allergy status to other antibiotic agents; Z79.899 Other long term (current) drug therapy; Z59.89 Other problems related to housing and economic circumstances; W01.0XXA Fall on same level from slipping, tripping and stumbling without subsequent striking against object, initial encounter
CPT/HCPCS: 29125; 73130; 99283-25; A9270

== ENCOUNTER → 2025-04-27 | Outpatient (CLI) | payer OTHER ==
[~2025-04-27] MED LIST changes: +MONDOXYNE NL100 MG PO; +Norco 5-325 Ta1 EACH PO
[2025-04-27 11:46] LABS: Protein, Urine Quantitative 7.1 mg/dL (0.0-11.9)
[2025-04-27 11:56] LABS: Microalbumin, Urine Quant. <5.000 mg/L (0.000-20.000)
== END ==
LOC: LAB SHORT 06:00 → LAB 06:00
PROVIDERS: Internal Medicine Nephrology
DX: N18.2 Chronic kidney disease, stage 2 (mild) (principal); D63.1 Anemia in chronic kidney disease
CPT/HCPCS: 81050; 82043; 82570; 84156